=== PATIENT | female | born 1960 | race Caucasian/White ===

== ENCOUNTER → 2016-06-18 | Outpatient (CLI) | payer OTHER ==
[~2016-06-18] MED LIST: ALBU1AER9 INH; CINN1CAP2 PO; MULT-506 PO; NYSTCRE11 TD
--- NOTE | 2016-06-19 05:45 | SPLIT NIGHT TECHNICIAN REPORT ---
[facility] Split Night Polysomnogram - Film And Video Graphics Designer Report Study date: 06/18/2016 Referring Physician: DONNA MARRERO DO, DO Name: ROSEY, TRACY Film And Video Graphics Designer: NICOLE Cai. Date of : 1960 Height: 55 years, Height 5' 6" Sex: Female Weight: 208 lbs Age: 55 Neck Circum: 14.5 in BMI: Medications: 33.57 STEPHEN D, AZITHROMYCIN 250 MG, BOSWELLIA, CINNAMON 500 MG, COQ-10, FISH OIL, GUAIFENESIN-CODEINE 100-10 MG/5 ML, PREDNISONE 50 MG, PROBIOTIC, SYNTHROID 50 MCG, VENTOLIN AERS, VENTOLIN HFA Patient History 55 yr-old female here for a baseline/split study. She has had previous sleep testing. She was found to be positive for mild JARRETT about 10 years ago. She could not tolerate CPAP at that time. She is back to assess her JARRETT and try CPAP or BiPAP again. Her [place] scale is 17. The test was started on room air. ETCO2 testing was not utilized during this study. Room 3 Parameters Monitored NPSG: E1-M2, E2-M1, Fp1-M2, Fp2-M1, F3-M2, F4-M2, F4-M1, C3-M2, C4-M2, C4-M1, O1-M2, O2-M2, O2-M1, T3-M2, T4-M1, P3-M2, P4-M1, CHIN1, CHIN2, HR, EKG, Legs, PFLOW, SNOR, FLOW, CFLOW, Tidal Volume, THOR, ABDO, SpO2, PLTH, CPRESS, ETCO2 Wave, ETCO2, pH SLEEP SUMMARY DATA DIAGNOSTIC TREATMENT Lights Out: 9:24:27 PM 12:17:57 AM Lights On: 11:55:27 PM 5:19:57 AM Total Recording Time (TRT): 151.0 min. 302.0 min. Total Sleep Time (TST): 137.5 min. 259.0 min. NREM Time: 106.0 min. 192.5 min. REM Time: 31.5 min. 66.5 min. Sleep Period Time (SPT): 139.0 min. 287.0 min. Sleep Efficiency (SE): 91 % 86 % Sleep Latency: 12.0 min. 6.5 min. Arousal Index: 15.7 11.8 PAP Treatment Levels: 4, 6, 7, 9, 12/8 * Optimal Pressure(s) SLEEP STAGING DATA DIAGNOSTIC TREATMENT Duration (min) TST % Duration (min) TST % Stage Wake: 13.5 min. -- 43.0 min. -- WASO: 1.5 min. -- 28.0 min. -- NREM: 106.0 min. 77 % 192.5 min. 74 % Stage N1: 6.5 min. 5 % 26.0 min. 10 % Stage N2: 90.5 min. 66 % 132.5 min. 51 % Stage N3: 9.0 min. 7 % 34.0 min. 13 % REM: 31.5 min. 23 % 66.5 min. 26 % POSITIONAL DATA Event Count Index Event Count Index Supine: 132 55.4 73 28.9 Supine NREM: 103 56.0 60 34.6 Supine REM: 29 53 13 17 Non-Supine: N/A N/A 4 2.1 Non-Supine NREM: N/A N/A 4 2.6 Non-Supine REM: N/A N/A 0 0.0 AROUSAL SUMMARY DATA: Event Count Index Event Count Index Apnea Arousals: 18 32.7 13 11.6 Hypopnea Arousals: 5 2.2 1 0.2 Snore Arousals: 5 2.2 5 1.2 PLM Arousals: 0 0.0 3 0.7 Non-Specific Arousals: 4 1.7 21 4.9 Total Arousals: 36 15.7 51 11.8 MYOCLONUS (PLM) Event Count Index Event Count Index PLM: 0 0.0 11 2.5 PLM AROUSAL: 0 0.0 3 0.7 PLM W/O AROUSAL 0 0.0 8 1.9 PLM W/RESP EVENT 0 0.0 1 0.0 MYOCLONUS (PLM) Event Count Index Event Count Index LM: 1 14.8 15 3.5 LM AROUSAL: 1 0.4 6 1.4 LM W/O AROUSAL LM W/RESP EVENT LM NON SPECIFIC 21 9.2 12 2.8 HEART RATE DATA DIAGNOSTIC TREATMENT Sleep (bpm): 60 55 REM (bpm): 93 96 NREM (bpm): 94 95 Tachycardia Count: 0 0 Tachycardia Duration: 0.00 0 Bradycardia Count: 0 0 Bradycardia Duration: 0.00 0 DIAGNOSTIC PORTION TREATMENT PORTION RESPIRATORY DATA Event Count Index Event Count Index AHI: -- 55.4 -- 17.4 RDI: -- 57.6 -- 18 Obstructive Apnea: 74 32.3 5 1.2 Central Apnea: 0 0.0 39 9.0 Mixed Apnea: 1 0.4 6 1.4 Hypopnea: 52 22.7 25 5.8 RERA: 5 2.2 2 0.5 Total Apneas: 75 32.7 50 11.6 RESPIRATORY DATA REM NREM SLEEP REM NREM SLEEP Supine Position: Obstructive Apneas: 4 70 74 1 4 5 Central Apneas: 0 0 0 0 36 36 Mixed Apneas: 0 1 1 0 5 5 Hypopneas: 24 28 52 12 13 25 RERA 1 4 5 0 2 2 Total Supine Events: 29 103 132 13 60 73 Supine AHI: 53 56.0 55.4 17 34.6 28.9 Supine RDI: 55.2 58.3 57.6 16.8 35.7 29.8 REM NREM SLEEP REM NREM SLEEP Non-Supine Position: Obstructive Apneas: N/A N/A N/A 0 0 0 Central Apneas: N/A N/A N/A 0 3 3 Mixed Apneas: N/A N/A N/A 0 1 1 Hypopneas: N/A N/A N/A 0 0 0 RERA N/A N/A N/A 0 0 0 Total Supine Events: N/A N/A N/A 0 4 4 Supine AHI: N/A N/A N/A 0.0 2.6 2.1 Supine RDI: N/A N/A N/A 0.0 2.6 2.1 OXYGEN DESTAURATION DATA: Event Count Index Event Count Index REM Desaturations: 30 57.1 12 10.8 NREM Desaturations: 68 38.5 41 12.8 SNORE DATA DIAGNOSTIC TREATMENT Snore Time: 17.1 12:24:27 AM Snore TST%: 6 3 Snore Arousal Count: 5 5 Snore Arousal Index: 2.2 1.2 Desaturation Event Summary: Minimum %SpO2 Event Count Mean/Min/Max Duration(sec.) Desaturation Index % Time In Bed > 90 157 24.6 / 5.3 / 60.0 21.9 96.2 86 - 90 3 9.8 / 5.3 / 12.8 11.5 3.5 81 - 85 0 N/A 0.0 0.3 76 - 80 0 N/A 0.0 0.0 71 - 75 0 N/A 0.0 0.0 66 - 70 0 N/A 0.0 0.0 61 - 65 0 N/A 0.0 0.0 56 - 60 0 N/A 0.0 0.0 51 - 55 0 N/A 0.0 0.0 < 50 0 N/A 0.0 0.0 OXYGEN SATURATION DATA DIAGNOSTIC TREATMENT SpO2 Mean Sleep: 94 % 95 % SpO2 Mean REM: 93 % 96 % SpO2 Mean NREM: 94 % 95 % SpO2 Minimum Sleep: 83 % 84 % SpO2 Minimum REM: 83 % 84 % SpO2 Minimum NREM: 83 % 87 % Time Below 90% (TST): 5.8 2.7 Time Below 88% (TST): 2.4 0.8 Total REM NREM Awake <50% 0.0 min. 0.0 min. 0.0 min. 0.0 min. 51 - 60% 0.0 min. 0.0 min. 0.0 min. 0.0 min. 61 - 70% 0.0 min. 0.0 min. 0.0 min. 0.0 min. 71 - 80% 0.0 min. 0.0 min. 0.0 min. 0.0 min. 81 - 90% 16.8 min. 7.0 min. 9.1 min. 0.7 min. 91 - 100% 430.1 min. 91.0 min. 289.1 min. 50.0 min. Average 95 95 95 96 Minimum SpO2 82 83 83 82 Desaturation Event Index 20.8 25.7 21.9 8.5 # Desat. Events below 89% 30 16 13 1 Time(%) with Saturation below 89% 1.1 0.7 0.4 0.0 Time(min.) with Saturation below 89% 5.0 3.2 1.6 0.2 Recording Film And Video Graphics Designer Comments: Ms. Fowler slept in the right, and supine positions. No cardiac arrhythmias or PLMs noted. No bruxism noted. Snoring was noted and scored as a 3 on a scale of 1 through 5. (0=no snoring, 5=snoring loud enough to be heard through a closed door or down the [address] way). At 12:15 am, she met specific Split-Night criteria during the diagnostic portion of this study. CPAP was initiated at +4 CMH2O and up-titrated to a level of +9 CMH2O, Cflex 3. She slept for 2 periods in the supine position after CPAP was introduced. She had numerous central apneas while supine until she rolled over. The central apneas stopped while she slept on her side. She then rolled to the supine position again and seemed to sleep well. She then shifted the position of her head at 5 am, and the central apneas started back up. She was then switched to BiPAP to try to help the central apneas. A rate of 13 BPM was also added late for the central apneas. Right after the rate was added, she woke up and was ready to end the study. Central apneas continued to the end of the study, therefore pressure is inconclusive. An AirFit full face mask size small was used during titration. She awoke up to use the restroom one time during the night. Ms. Fowler stated that she is unsure of how she slept. The final report will be interpreted and signed by a sleep physician. The completed physician report will then be placed in the patient medical record. Therapy Event: Therapy (cm H20) 0 4 6 7 9 12/8 Total Time at Pressure (min.) 151.0 61.4 115.1 20.5 89.3 15.6 TST at Pressure (min.) 137.5 33.9 112.6 20.5 86.8 5.1 # Periods 1 1 1 1 1 1 Sleep Onset (min.) 12.0 6.5 0.0 0.0 0.0 0.0 REM Onset (min.) 117.5 N/A 38.1 7.0 0.0 N/A Sleep Efficiency % 91 55 97 100 97 32 Wakefulness (%) 8.9 44.8 2.2 0.0 2.8 67.1 Wakefulness (min.) 13.5 27.5 2.5 0.0 2.5 10.5 NREM 1 (%) 4.3 22.0 1.3 0.0 8.4 22.4 NREM 1 (min.) 6.5 13.5 1.5 0.0 7.5 3.5 NREM 2 (%) 59.9 33.2 49.6 34.0 51.9 10.5 NREM 2 (min.) 90.5 20.4 57.1 7.0 46.4 1.6 NREM 3 (%) 6.0 0.0 29.5 0.0 0.0 0.0 NREM 3 (min.) 9.0 0.0 34.0 0.0 0.0 0.0 REM (%) 20.9 0.0 17.4 66.0 36.9 0.0 REM (min.) 31.5 0.0 20.0 13.5 33.0 0.0 # Arousals 36 30 5 0 12 4 Arousal Index 15.7 53.1 2.7 0.0 8.3 46.6 # Snore 537 19 170 78 26 1 Snore Index 234.3 33.6 90.6 228.4 18.0 11.7 AHI 55.4 60.2 4.8 46.8 7.6 58.3 AHI Supine 55.4 84.5 37.7 46.8 7.6 58.3 AHI Non-Supine N/A 15.1 0.6 N/A N/A N/A NREM AHI 56.0 60.2 5.8 51.7 8.9 58.3 REM AHI 53.3 N/A 0.0 44.4 5.5 N/A RDI 57.6 60.2 5.3 46.8 8.3 58.3 # Obstructive 74 2 2 1 0 0 # Central Ap 0 26 0 0 8 5 # Mixed 1 5 1 0 0 0 # Hypopneas 52 1 6 15 3 0 RERAS 5 0 1 0 1 0 Total Respiratory Events 132 34 10 16 12 5 Time Below SpO2 89.00% (min.) 3.6 0.4 0.0 0.8 0.0 0.0 Mean NREM SpO2 (%) 94 93 95 95 96 98 Mean REM SpO2 (%) 93 N/A 95 95 96 N/A Mean Sleep SpO2 (%) 94 93 95 95 96 98 Min NREM SpO2 (%) 83 87 91 90 94 97 Min REM SpO2 (%) 83 N/A 93 84 89 N/A Position Supine (min.) 137.5 22.0 12.7 20.5 86.8 5.1 Position Non-supine (min.) 0.0 11.9 99.9 0.0 0.0 0.0 LM Index Sleep 14.8 33.6 2.1 0.0 2.1 0.0 LM Index NREM 17.0 33.6 2.6 0.0 3.3 0.0 LM Index REM 7.6 N/A 0.0 0.0 0.0 N/A Mean Heart Rate (bpm) 60 56 55 55 54 47 Min Heart Rate (bpm) 49 49 47 47 43 42 CPAP REPORT Therapy Detail Time / Page # Comment CPAP 4 cm H2O Full Face Mask Flex Pressure Relief Humidifier on 12:15:51 AM / pg. 472 CPAP 4 cm H2O Full Face Mask Flex Pressure Relief Humidifier on 12:16:28 AM / pg. 474 SHE HAS BEEN ASLEEP FOR OVER 2 HOURS AND HER AHI IS ABOVE 40. CPAP 6 cm H2O Full Face Mask Flex Pressure Relief Humidifier on 1:19:21 AM / pg. 599 INCREASED FOR SOME HYPOPNEAS AND APNEAS. WILL DEAL WITH CENTRAL APNEAS WHEN SHE ROLLS SUPINE AGAIN CPAP 7 cm H2O Full Face Mask Flex Pressure Relief Humidifier on 3:14:29 AM / pg. 830 INCREASED FOR HYPOPNEAS AND APNEAS CPAP 9 cm H2O Full Face Mask Flex Pressure Relief Humidifier on 3:34:59 AM / pg. 871 INCREASED FOR HYPOPNEAS BiLevel 12/8 cm H2O Full Face Mask Flex Pressure Relief Humidifier on 5:04:18 AM / pg. 1049 SHE ROLLED TO THE SUPINE POSITION AND STARTED HAVING CENTRAL APNEAS AGAIN. CHANGED TO BIPAP LATE TO HELP THE CENTRAL APNEAS BiLevel 12/8 cm H2O, Rate 13 bpm Full Face Mask Flex Pressure Relief Humidifier on 5:10:16 AM / pg. 1061 ADDED A RATE LATE DUE TO CENTRAL APNEAS
--- NOTE | 2016-06-22 13:16 | POLYSOMNOGRAPH REPORT ---
CLINICAL DATA: The patient is a 55-year-old female who has a BMI of 33.57. She had a history of sleep apnea diagnosed about 15 years ago. She thought that it was mild. She was on nasal CPAP, but did not do well with it. She also was on oxygen with a CPAP. Subsequently, she tried an oral appliance and did fairly well. Within the past year, the oral appliance was changed to another one referred to TAP 3. She did not do well with this and she has not worn it for several months. She has snoring, disturbed nocturnal sleep, and excessive daytime somnolence. Her [place] score is severely elevated at 18. She underwent a split night study. SLEEP ARCHITECTURE: During the diagnostic portion of the study, the sleep period time was 139.0 minutes and the total sleep time was 137.5 minutes. The sleep efficiency was 91%. The sleep latency was 12 minutes. The arousal index was 15.7. Sleep consisted of stage N1 5%, stage N2 66%, stage N3 7%, and stage REM 23%. During the therapeutic portion of the study when she was treated with nasal CPAP, the sleep period time was 287 minutes with a total sleep time of 259 minutes. The sleep efficiency was 86%. Sleep consisted of stage N1 10%, stage N2 51%, stage N3 13%, and stage REM 26%. AROUSAL DATA: During the diagnostic portion of the study, the patient had a total of 36 arousals for an index of 15.7. During the therapeutic portion of the study, she had a total of 51 arousals for an index of 11.8. PERIODIC LIMB MOVEMENTS DATA: During the diagnostic portion of the study, there were no periodic limb movements. During the therapeutic portion of the study, there were 11 periodic limb movements for an index of 2.5. The PLM arousal index was only 0.7. EKG: The cardiac rates ranged from 55-96 beats per minute. No arrhythmias were noted. RESPIRATORY DATA: During the diagnostic portion of the study, the patient had a total of 74 obstructive apneas, 1 mixed apnea and 52 hypopneas. The apnea hypopnea index was severely elevated at 55.4. During the therapeutic portion of the study, the patient had a total of 5 obstructive apneas, 39 central apneas, 6 mixed apneas and 25 hypopneas. The apnea hypopnea index was 17.4. OXIMETRY DATA: During the diagnostic portion of the study, the lowest saturation was 83%. There was a total of 2.4 minutes with saturations less than 88%. During the therapeutic portion of the study, the lowest saturation was 84%, but there was only 0.8 minutes with saturations less than 88%. POT LINER'S COMMENTS: The patient slept in the right and supine positions. No arrhythmias were noted. No bruxism noted. Snoring was scored as a 3 on a scale of 1 through 5. At 12:15 a.m., the patient met specific split night criteria during the diagnostic portion of the study. CPAP was initiated at 4 cm and titrated up to level of 9 cm. She had numerous central apneas as well when supine until she rolled over. The central apneas seemed to cease when she was on her side. Subsequently, near 5:00 a.m., the patient and changed her positions again. The central apneas started. She was switched to BiPAP to try to help the central apneas. However, she awakened shortly thereafter. IMPRESSION: 1. Obstructive sleep apnea -- severe. 2. Complex sleep apnea -- precipitated by treatment with nasal CPAP therapy. COMMENTS: The patient has very severe sleep apnea as noted with a diagnostic apnea-hypopnea index of 55.4. There were transient and relatively minimal oxygen desaturations. She was treated with nasal CPAP. She ultimately develops some central sleep apnea when she was supine. This resolved for the next several hours when she turned off of her back. It recurred again shortly before the end of the study. She has complex sleep apnea in response to treatment. RECOMMENDATIONS: 1. It is advised that she be given a trial of auto CPAP with a minimum pressure of 6 and a maximum of 18 cm. Her mask should be an AirFit Full face mask size small. 2. Fairly close followup should be done in 3-4 weeks after the initiation of auto CPAP with evaluation of compliance data. 3. A weight reduction program is advised in light of her elevation of body mass index of 33.57. 4. It is suggested that she avoid sleeping in the supine position as she clearly had increased events when she was supine. 5. The patient should be advised of the appropriate principles of sleep hygiene including allowing 7.5 hours of sleep per night. We also would suggest that dogs not sleep on her bed. [facility]
== END | disposition home or self-care (01) ==
LOC: C.NEUR 20:00
PROVIDERS: ATTEND Internal Medicine Pulmonary Disease
DX: G47.30 Sleep apnea, unspecified (principal)

== ENCOUNTER → 2016-06-24 | Outpatient (CLI) | payer OTHER ==
[~2016-06-24] VITALS: Ht 167.6 cm; Wt 95.8 kg
[2016-06-24 09:53] VITALS: BP 123/82; PULSE 78; Ht 167.6 cm; Wt 95.8 kg
== END | disposition home or self-care (01) ==
LOC: C.NEUR 09:37
PROVIDERS: ATTEND Internal Medicine Pulmonary Disease
DX: G47.30 Sleep apnea, unspecified (principal); J39.2 Other diseases of pharynx

== ENCOUNTER → 2016-07-22 | Outpatient (CLI) | payer OTHER ==
[~2016-07-22] VITALS: Ht 167.6 cm; Wt 97.2 kg
[2016-07-22 09:18] VITALS: BP 105/71; PULSE 72; Ht 167.6 cm; Wt 97.2 kg
== END | disposition home or self-care (01) ==
LOC: C.NEUR 09:07
PROVIDERS: ATTEND Internal Medicine Pulmonary Disease
DX: G47.30 Sleep apnea, unspecified (principal)

== ENCOUNTER → 2016-09-02 | Outpatient (CLI) | payer OTHER ==
[~2016-09-02] VITALS: Ht 167.6 cm; Wt 98.4 kg
[2016-09-02 08:30] VITALS: BP 121/75; PULSE 73; Ht 167.6 cm; Wt 98.4 kg
== END | disposition home or self-care (01) ==
LOC: C.NEUR 08:18
PROVIDERS: ATTEND Internal Medicine Pulmonary Disease
DX: G47.30 Sleep apnea, unspecified (principal)

== ENCOUNTER 2017-03-20 22:09 | Emergency (ER) | payer OTHER ==
[~2017-03-20] VITALS: Ht 167.6 cm; Wt 99.2 kg
[2017-03-20 22:12] VITALS: TEMP 36.5; Ht 167.6 cm; Wt 99.2 kg
[2017-03-20] MEDS ORDERED: ASPIRIN 324 MG CHEW PO STA (22:35)
[2017-03-20] MEDS ORDERED: VNTHFA/IN INH (22:41)
[2017-03-20] MEDS ORDERED: SYN50 PO (22:41)
[2017-03-20] MEDS ORDERED: FEXO1TAB49 PO (22:41)
[2017-03-20] MEDS ORDERED: [UNRECOGNIZED DRUG - OTHER] PO (22:41)
[2017-03-20] MEDS ORDERED: OMEG100046 PO (22:41)
[2017-03-20] MEDS ORDERED: [UNRECOGNIZED DRUG - OTHER] PO (22:41)
[2017-03-20 22:44] LABS: BASO % 0.4 %; BASO ABS # 0.03 K/uL (0-0.2); COMPLETE YES; EOS % 0.8 %; HEMATOCRIT 42.1 % (37-47); IG% 0.3 %; LYMPH % 14.8 %; LYMPH ABS # 1.15 K/uL (1.2-3.4); MEAN CELL VOLUME 90.5 fL (80-100); MEAN CORPUSCULAR HGB CONC 35.4 g/dl (32-36); MEAN PLATELET VOLUME 9.4 fL (7.4-10.4); MONO % 3.7 %; PLATELET COUNT 228 K/uL (130-400); RED BLOOD COUNT 4.65 M/uL (4.2-5.4); WHITE BLOOD COUNT 7.76 K/uL (4.8-10.8)
[2017-03-20] MEDS ORDERED: NITROGLYCERIN OINT 2% 1GM PACKET EXT ONE (22:45)
[2017-03-20 22:49] LABS: URINE APPEARANCE CLEAR (CLEAR); URINE BILIRUBIN NEG (NEG); URINE COLOR YELLOW; URINE NITRITE NEG (NEG); UROBILINOGEN NEG (NEG); ZZUR CULT IF INDIC CLEAN CATCH NO
[2017-03-20 22:51] LABS: PARTIAL THROMBOPLASTIN RATIO 0.9; PROTHROMBIN TIME (PATIENT) 10.5 SECONDS (9.0-12.0)
--- NOTE | 2017-03-20 22:55 | DIAGNOSTIC IMAGING REPORT ---
CHEST ONE VIEW PORTABLE HISTORY: 56 years-old Female Left side chest pain acute left-sided chest pain. COMPARISON: Chest radiograph 04/06/2016 TECHNIQUE: Portable upright AP view of the chest FINDINGS: Cardiomediastinal and hilar silhouettes are within normal limits. There is atherosclerosis of the aorta. Minimal subsegmental bibasilar atelectasis without pneumothorax, pleural effusion or focal airspace consolidation. No overt pulmonary edema. Bones are grossly intact. IMPRESSION: No acute cardiopulmonary process. The above report was generated using voice recognition software. It may contain grammatical, syntax or spelling errors. Electronically signed by: Jairo Pollack M.D. 03/20/2017 10:53 PM Dictated Date/Time: 03/20/2017 10:52 PM
[2017-03-20 22:56] LABS: MANUAL MICROSCOPIC REQUIRED? NO; REVIEW REQ? NO
[2017-03-20 22:59] LABS: BUN/CREATININE RATIO 26.6 (10-20); CALCIUM 8.8 mg/dl (8.5-10.1); CREATININE 0.71 mg/dl (0.60-1.20)
[2017-03-20 23:09] LABS: POINT OF CARE TROPONIN I < 0.030 ng/ml (0-0.045)
[2017-03-20 23:09] LABS: ALB/GLOB RATIO 1.2 (0.9-2); THYROID STIMULATING HORMONE 1.74 uIu/ml (0.300-4.500)
[2017-03-20] MEDS ORDERED: OPTIRAY 320 IV PRN (23:30)
[2017-03-21 01:38] VITALS: BP 100/61; PULSE 68; O2SAT 97
--- NOTE | 2017-03-21 06:16 | DIAGNOSTIC IMAGING REPORT ---
(CHEST FOR PE) ANGIO WITH CLINICAL HISTORY: 56 years-old Female presenting with chest pain, history of DVT/PE, elevated d-dimer, clinical concern for PE. TECHNIQUE: Multidetector CT angiography of the chest was performed after administration of intravenous contrast. 3-D volumetric and/or maximum intensity projection (MIP) images were subsequently reconstructed for review. IV contrast: 92 mL of Optiray 320. A dose lowering technique was used consistent with the principles of ALARA (as low as reasonably achievable). COMPARISON: Chest x-ray performed earlier the same day. CT DOSE (mGy.cm): The estimated cumulative dose is 468.01 mGy.cm. FINDINGS: Logging Equipment Operator topogram: Unremarkable. Pulmonary vasculature: The study is adequate for assessment of the pulmonary vascular tree. No filling defect within the pulmonary arteries to suggest embolus. Main pulmonary artery is not enlarged. No flattening of the interventricular septum. No intracardiac intracardiac filling defect. No reflux of contrast into the hepatic veins. Remaining chest: On soft tissue windows, normal thyroid and thoracic inlet. No axillary, supraclavicular, hilar, or mediastinal lymphadenopathy. Normal aorta. Normal heart size. No pericardial or pleural effusion. The esophagus contains gas and does not demonstrate significant wall thickening or surrounding fat stranding. Small hiatal hernia may be present. Upper abdomen normal. On lung windows, minimal dependent changes likely atelectasis. Mosaic attenuation could suggest small airways disease. Airways patent. On bone windows, mild degenerative changes of the spine. IMPRESSION: 1. No evidence of pulmonary embolus. 2. Mosaic attenuation could suggest small airways disease. No focal infiltrate. Electronically signed by: Gabriel Fay M.D. 03/21/2017 6:15 AM Dictated Date/Time: 03/21/2017 6:07 AM
--- NOTE | 2017-03-22 00:25 | EMERGENCY ROOM VISIT NOTE ---
History First contact with patient: 22:21 Chief Complaint: CARDIAC ASSESSMENT Stated Complaint: HEAVY FEELING IN CHEST, PAINS IN BACK, LT SIDE Nursing Triage Summary: Pt c/o increased left sided chest pain, increases with deep breaths and exertion, weakness, and general malaise starting this morning. History of Present Illness The patient is a 56 year old female who presents to the Emergency Room with complaints of left sided chest pain that has been ongoing for the past 9-10 hours. The patient states that she was visiting her father who is in an assisted assisted this morning. The patient was not feeling well, and had some vague weakness and lightheadedness. She went home after she began developing some left flank pain. She states the pain has migrated and is now primarily in the left upper chest and across the front anteriorly of the chest. The patient has increased stressors in her personal life as there was a recent in the family and she was at the celebration of life ceremony yesterday. The patient has not had fever or chills. She is able to move around without significant difficulty. The pain has been steady and constant. 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 She does not have a personal history of cardiac disease. She has not taken anything [id number] for her symptoms. Review of Systems More than 10 systems were reviewed and otherwise negative with the exception of history of present illness. Past Medical/Surgical History Medical Problems: (1) Bronchitis (2) Pneumonia Surgical Problems: (1) H/O ovarian cystectomy (2) H/O: hysterectomy (3) Hx of cholecystectomy Family History FH: HTN (hypertension) FH: cancer FH: kidney cancer FH: lung disease Heart disease Social History Smoking Status: Never Smoker Marital Status: Housing Status: lives with significant other Occupation Status: employed Current/Historical Medications Scheduled Cinnamon (Cinnamon), 500 MG PO DAILY Fexofenadine Hcl (Twila Allergy), 180 MG PO DAILY Levothyroxine Sodium (Synthroid), 50 MCG PO DAILY Multivitamin (Multivitamin), 1 TAB PO DAILY Martelle-3 Fatty Acids (Martelle 3), 1 CAP PO DAILY [Cardio FX], 1 CAP PO DAILY [Immune FX], 1 CAP PO DAILY Scheduled PRN Albuterol Hfa (Ventolin Hfa), 2 PUFFS INH Q6H PRN for SOB/Wheezing Physical Exam Vital Signs Date Time Temp Pulse Resp B/P (MAP) Pulse Ox O2 Delivery O2 Flow Rate FiO2 03/21/17 01:38 68 18 100/61 97 03/21/17 01:31 68 18 100/61 97 Room Air 03/21/17 01:01 111/67 03/21/17 00:01 126/76 03/20/17 23:14 63 16 98 Room Air 03/20/17 23:09 65 15 99 Room Air 03/20/17 23:01 125/85 03/20/17 22:42 140/86 03/20/17 22:39 71 03/20/17 22:34 Room Air 03/20/17 22:34 Room Air 03/20/17 22:12 36.5 71 18 142/93 96 Room Air Physical Exam VITALS: Vitals are noted on the nurse's note and reviewed by myself. Vital signs stable. GENERAL: Well-developed, well-nourished, white female, who is in no acute distress and resting comfortably. Patient is cooperative with the examination. HEAD: Normocephalic atraumatic. EARS: External ear normal. External auditory canals clear, tympanic membranes pearly mott without erythema or effusion bilaterally. EYES: Pupils equal round and reactive to light and accommodation. Conjunctivae without injection, sclerae without icterus. Extraocular movements intact. NOSE: Patent, turbinates without inflammation or discharge. MOUTH: Mucous membranes moist. Tonsils are not enlarged. Pharynx without erythema, blood, or exudate. Uvula midline. Airway patent. NECK: Supple without nuchal rigidity. No lymphadenopathy. No thyromegaly. Cervical spine is nontender. HEART: Regular rate and rhythm without murmurs gallops or rubs. LUNGS: Clear to auscultation bilaterally without wheezes, rales or rhonchi. No retractions or accessory muscle use. CHEST WALL: Anterior and left-sided chest wall without rash, lesion, or palpable tenderness. No crepitus or other lesions. ABDOMEN: Positive normal bowel sounds x 4. Soft, nontender, without masses or organomegaly. No guarding or rebound tenderness. MUSCULOSKELETAL: No muscle atrophy, erythema, or edema noted. Full range of motion without joint tenderness in all extremities. Negative Homans sign bilateral. Medical Decision & Procedures ER Provider Diagnostic Interpretation: CHEST ONE VIEW PORTABLE HISTORY: 56 years-old Female Left side chest pain acute left-sided chest pain. COMPARISON: Chest radiograph 04/06/2016 TECHNIQUE: Portable upright AP view of the chest FINDINGS: Cardiomediastinal and hilar silhouettes are within normal limits. There is atherosclerosis of the aorta. Minimal subsegmental bibasilar atelectasis without pneumothorax, pleural effusion or focal airspace consolidation. No overt pulmonary edema. Bones are grossly intact. IMPRESSION: No acute cardiopulmonary process. (CHEST FOR PE) ANGIO WITH CLINICAL HISTORY: 56 years-old Female presenting with chest pain, history of DVT/PE, elevated d-dimer, clinical concern for PE. TECHNIQUE: Multidetector CT angiography of the chest was performed after administration of intravenous contrast. 3-D volumetric and/or maximum intensity projection (MIP) images were subsequently reconstructed for review. IV contrast: 92 mL of Optiray 320. A dose lowering technique was used consistent with the principles of ALARA (as low as reasonably achievable). COMPARISON: Chest x-ray performed earlier the same day. CT DOSE (mGy.cm): The estimated cumulative dose is 468.01 mGy.cm. FINDINGS: Parts Department Manager topogram: Unremarkable. Pulmonary vasculature: The study is adequate for assessment of the pulmonary vascular tree. No filling defect within the pulmonary arteries to suggest embolus. Main pulmonary artery is not enlarged. No flattening of the interventricular septum. No intracardiac intracardiac filling defect. No reflux of contrast into the hepatic veins. Remaining chest: On soft tissue windows, normal thyroid and thoracic inlet. No axillary, supraclavicular, hilar, or mediastinal lymphadenopathy. Normal aorta. Normal heart size. No pericardial or pleural effusion. The esophagus contains gas and does not demonstrate significant wall thickening or surrounding fat stranding. Small hiatal hernia may be present. Upper abdomen normal. On lung windows, minimal dependent changes likely atelectasis. Mosaic attenuation could suggest small airways disease. Airways patent. On bone windows, mild degenerative changes of the spine. IMPRESSION: 1. No evidence of pulmonary embolus. 2. Mosaic attenuation could suggest small airways disease. No focal infiltrate. Laboratory Results 03/20/17 22:30 Red Blood Count 4.65, Mean Corpuscular Volume 90.5, Mean Corpuscular Hemoglobin 32.0, Mean Corpuscular Hemoglobin Concent 35.4, Mean Platelet Volume 9.4, Neutrophils (%) (Auto) 80.0, Lymphocytes (%) (Auto) 14.8, Monocytes (%) (Auto) 3.7, Eosinophils (%) (Auto) 0.8, Basophils (%) (Auto) 0.4, Neutrophils # (Auto) 6.21, Lymphocytes # (Auto) 1.15, Monocytes # (Auto) 0.29, Eosinophils # (Auto) 0.06, Basophils # (Auto) 0.03 03/20/17 22:30 Test 03/20/17 22:30 03/20/17 22:51 03/21/17 01:00 White Blood Count 7.76 K/uL (4.8-10.8) Red Blood Count 4.65 M/uL (4.2-5.4) Hemoglobin 14.9 g/dL (12.0-16.0) Hematocrit 42.1 % (37-47) Mean Corpuscular Volume 90.5 fL (80-100) Mean Corpuscular Hemoglobin 32.0 pg (25-34) Mean Corpuscular Hemoglobin Concent 35.4 g/dl (32-36) Platelet Count 228 K/uL (130-400) Mean Platelet Volume 9.4 fL (7.4-10.4) Neutrophils (%) (Auto) 80.0 % Lymphocytes (%) (Auto) 14.8 % Monocytes (%) (Auto) 3.7 % Eosinophils (%) (Auto) 0.8 % Basophils (%) (Auto) 0.4 % Neutrophils # (Auto) 6.21 K/uL (1.4-6.5) Lymphocytes # (Auto) 1.15 K/uL (1.2-3.4) Monocytes # (Auto) 0.29 K/uL (0.11-0.59) Eosinophils # (Auto) 0.06 K/uL (0-0.5) Basophils # (Auto) 0.03 K/uL (0-0.2) RDW Standard Deviation 40.2 fL (36.4-46.3) RDW Coefficient of Variation 12.1 % (11.5-14.5) Immature Granulocyte % (Auto) 0.3 % Immature Granulocyte # (Auto) 0.02 K/uL (0.00-0.02) Prothrombin Time 10.5 SECONDS (9.0-12.0) Prothromb Time International Ratio 1.0 (0.9-1.1) Activated Partial Thromboplast Time 23.5 SECONDS (21.0-31.0) Partial Thromboplastin Ratio 0.9 Urine Color YELLOW Urine Appearance CLEAR (CLEAR) Urine pH 8.0 (4.5-7.5) Urine Specific [place] 1.010 (1.000-1.030) Urine Protein NEG (NEG) Urine Glucose (UA) NEG (NEG) Urine Ketones NEG (NEG) Urine Occult Blood NEG (NEG) Urine Nitrite NEG (NEG) Urine Bilirubin NEG (NEG) Urine Urobilinogen NEG (NEG) Urine Leukocyte Esterase NEG (NEG) Anion Gap 10.0 mmol/L (3-11) Est Creatinine Clear Calc Drug Dose 107.6 ml/min Estimated GFR () 111.9 Estimated GFR (Non- 96.6 BUN/Creatinine Ratio 26.6 (10-20) Calcium Level 8.8 mg/dl (8.5-10.1) Total Bilirubin 0.4 mg/dl (0.2-1) Aspartate Amino Transf (AST/SGOT) 26 U/L (15-37) Alanine Aminotransferase (ALT/SGPT) 47 U/L (12-78) Alkaline Phosphatase 63 U/L (45-117) Total Protein 7.1 gm/dl (6.4-8.2) Albumin 3.8 gm/dl (3.4-5.0) Globulin 3.3 gm/dl (2.5-4.0) Albumin/Globulin Ratio 1.2 (0.9-2) Lipase 470 U/L (73-393) Thyroid Stimulating Hormone (TSH) 1.740 uIu/ml (0.300-4.500) Bedside D-Dimer > 450 ng/mlFEU (0-450) Bedside Troponin I < 0.030 ng/ml (0-0.045) Medications Administered Medications (Trade) Dose Ordered Sig/Fabiola Route Start Time Stop Time Status Last Admin Dose Admin Aspirin (Aspirin Chew) 324 mg NOW STAT PO 03/20/17 22:35 03/20/17 22:37 DC 03/20/17 22:43 324 MG Nitroglycerin (Nitroglycerin 2% Oint) 1 inch NOW ONCE EXT 03/20/17 22:45 03/20/17 22:46 DC 03/20/17 22:43 1 INCH ECG Change: Poor data quality, interpretation may be adversely affected Normal sinus rhythm @72 bpm Normal ECG No previous ECGs available Confirmed by AGAPITO MAIER MD ([id number]) on 03/21/2017 1:03:57 PM ED Course Physical exam and history were performed. Nursing notes, EMR, and Medication List were personally reviewed. Patient appears to have vague and persistent left-sided chest discomfort for the past 9 or 10 hours. The patient does not appear toxic on examination. EKG was performed and was normal sinus rhythm without acute ST elevation as above. IV access was established and labs were obtained. The patient was hydrated with normal saline and given aspirin and 1 inch Nitropaste. She was placed on the cardiac cath technologist. The patient's blood work is as above and was reviewed. She does not have a significantly elevated white blood cell count, gross anemia, bandemia, or significant electrolyte imbalance. Lipase and transaminases are nondiagnostic. Troponin 2 were negative. D-dimer 1 was positive. Her chest x-ray does not show acute process. Because of the elevated d-dimer and history of PE I did elect to perform angiogram. The CT angiogram was also without significant acute findings. On reevaluation the patient did not have significant improvement of her symptoms after nitro paste and aspirin. I discussed the case with my attending physician, and overall feel the patient is stable for discharge home. I suspect that her symptoms may be related to stress/anxiety over family events for the past few days. The patient agrees this is probably contributing to her symptoms. The patient was asked to follow with her primary care physician on Wednesday after the weekend for a recheck. She was invited back to the ER with any new, worsening, or concerning symptoms. She voiced understanding and rated her discomfort a 1/10 at the time of departure. The chart was completed utilizing [employer] Speech Voice Recognition Software. Grammatical errors, random word insertions, pronoun errors, and incomplete sentences are an occasional consequence of this system due to software limitations, ambient noise, and hardware issues. Any formal questions or concerns about the content, text, or information contained within the body of this dictation should be directly addressed to the provider for clarification. . Medical Decision Differential diagnosis includes, but is not limited to: Myocardial infarction, dysrhythmia, pericarditis, pneumothorax, aortic aneurysm/dissection, DVT/PE, anxiety, GERD, PUD, electrolyte imbalance, thyroid disorder, pneumonia, bronchitis, pancreatitis, and others Blood Pressure Screening Patient's blood pressure: Normal blood pressure Impression Primary Impression: Left sided chest pain Departure Information Dispostion Home / Self-Care Condition GOOD Forms IMPORTANT VISIT INFORMATION Patient Instructions My [facility] Additional Instructions You were seen and evaluated today on an emergency basis only. This is not a substitute for, or an effort to provide, complete comprehensive medical care. It is not possible to recognize and treat all injuries or illnesses in a single emergency department visit. For this reason it is recommended that you followup with your primary care physician tomorrow for recheck of your condition. Drink plenty of fluids and remain well hydrated. You are welcome to return to the emergency department anytime with new, worsening, or concerning symptoms.
== END 2017-03-21 01:38 | disposition home or self-care (01) ==
LOC: C.EDB 22:10
DX: R07.9 Chest pain, unspecified (principal); R06.00 Dyspnea, unspecified; R10.9 Unspecified abdominal pain; Z86.718 Personal history of other venous thrombosis and embolism; Z86.711 Personal history of pulmonary embolism

== ENCOUNTER → 2017-05-08 | Outpatient (CLI) | payer OTHER ==
[~2017-05-08] MED LIST changes: -ALBU1AER9 INH; +FEXO1TAB49 PO; -NYSTCRE11 TD; +OMEG100046 PO; +SYN50 PO; +VNTHFA/IN INH; +[UNRECOGNIZED DRUG - OTHER] PO; +[UNRECOGNIZED DRUG - OTHER] PO
[2017-05-08 11:15] LABS: ALT/SGPT 45 U/L (12-78); AST/SGOT 24 U/L (15-37); BLOOD UREA NITROGEN 20 mg/dl (7-18); BUN/CREATININE RATIO 24.1 (10-20); CARBON DIOXIDE 26 mmol/L (21-32); CHLORIDE 103 mmol/L (98-107); CREATININE 0.81 mg/dl (0.60-1.20); GLUCOSE 87 mg/dl (70-99); SODIUM 134 mmol/L (136-145)
[2017-05-08 11:25] LABS: ALB/GLOB RATIO 1.1 (0.9-2); ALKALINE PHOSPHATASE 64 U/L (45-117); CHOLESTEROL 278 mg/dl (0-200); CHOLESTEROL/HDL RATIO 4.3; HDL CHOLESTEROL 64 mg/dl; LDL CHOLESTEROL CALCULATED 193 mg/dl; TRIGLYCERIDES 106 mg/dl (0-150); VERY LOW DENSITY LIPOPROT CALC 21 mg/dl
[2017-05-08 13:04] LABS: ESTIMATED AVERAGE GLUCOSE 108 mg/dl; HA1C FLAG Normal (Normal)
== END | disposition home or self-care (01) ==
LOC: C.LABBC 09:46
PROVIDERS: ATTEND Family Medicine
DX: E03.9 Hypothyroidism, unspecified (principal); E78.00 Pure hypercholesterolemia, unspecified; R53.83 Other fatigue

== ENCOUNTER → 2017-09-02 | Outpatient (CLI) | payer OTHER ==
[~2017-09-02] VITALS: Ht 167.6 cm; Wt 96.5 kg
[2017-09-02 09:16] VITALS: BP 102/67; PULSE 80; Ht 167.6 cm; Wt 96.5 kg
== END | disposition home or self-care (01) ==
LOC: C.NEUR 08:30
PROVIDERS: ATTEND Internal Medicine Pulmonary Disease
DX: G47.33 Obstructive sleep apnea (adult) (pediatric) (principal)

== ENCOUNTER → 2017-10-27 | Outpatient (CLI) | payer OTHER ==
[2017-10-27 12:24] LABS: ALBUMIN 3.8 gm/dl (3.4-5.0); AST/SGOT 28 U/L (15-37); BLOOD UREA NITROGEN 19 mg/dl (7-18); CALCIUM 8.6 mg/dl (8.5-10.1); CARBON DIOXIDE 26 mmol/L (21-32); CHOLESTEROL 266 mg/dl (0-200); CREATININE 0.75 mg/dl (0.60-1.20); GLUCOSE 102 mg/dl (70-99); POTASSIUM 4.1 mmol/L (3.5-5.1); SODIUM 137 mmol/L (136-145)
[2017-10-27 12:34] LABS: ALKALINE PHOSPHATASE 66 U/L (45-117); ALT/SGPT 52 U/L (12-78); LDL CHOLESTEROL CALCULATED 192 mg/dl; TOTAL PROTEIN 7.2 gm/dl (6.4-8.2)
== END | disposition home or self-care (01) ==
LOC: C.LABBC 08:31
PROVIDERS: ATTEND Family Medicine
DX: E03.9 Hypothyroidism, unspecified (principal); E78.00 Pure hypercholesterolemia, unspecified; G47.30 Sleep apnea, unspecified; E55.9 Vitamin D deficiency, unspecified

== ENCOUNTER 2019-08-28 14:14 | Observation (INO) ==
--- NOTE | 2019-08-28 14:23 | Emergency Department Note ---
Past Med/Surg History Family History Mother Acute myocardial infarction Allergic rhinitis Asthma Stroke Family history of deafness or hearing loss Hypercholesteremia Sister Breast cancer Allergic rhinitis Asthma History of deep venous thrombosis Hypercholesteremia Hypertension Local recurrence of carcinoma of breast Brother History of emphysema Family history of deafness or hearing loss Liver cancer Type C viral hepatitis Hypertension Diabetes Grandmother (Maternal) Stroke Father Hypercholesteremia Family/Other Sinus disorder Denies family history of Bleeding disorder Social History marital status: Current Living Situation: Spouse and Family Current Living Situation Comment: parent; sexually active current occupational status: employed 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 Feels Safe at Home: Yes Smoking Status: Never smoker Hx Alcohol Use: No Hx Substance Use: No Dental Care, Regularly: Yes Physical Activity Frequency: Daily Seatbelt Use: always Sunscreen Use: Yes Results & Data Vital Signs Vital Signs - 24 hr 08/28/19 14:17 Temperature Source Oral Pulse Rate 84 Respiratory Rate 16 Blood Pressure 157/90 H Blood Pressure Mean 112 Pulse Oximetry 97 Sepsis Recent Fever Within 48 Hours No Sepsis New/Unexplained Change in Mental Status No Sepsis Action Taken by Nursing No Action Required Discharge Plan Visit Data Chief Complaint: Leg Injury/Pain Stated Complaint: +DVT R LEG ED Provider: Jung Lennon Prescriptions Prescriptions: No Action prednisone 10 mg tablet See Rx Instructions PO DAILY Qty: 18 RF: 0 levothyroxine 75 mcg tablet 75 mcg PO DAILY Qty: 90 RF: 3 omega-3 fatty acids [Fish Oil Concentrate] 1,000 mg capsule 1,000 mg PO DAILY RF: 0 albuterol sulfate 90 mcg/actuation HFA aerosol inhaler See Rx Instructions inhalation .COMPLEX RF: 0 cholecalciferol (vitamin D3) 2,000 unit capsule 2,000 units PO DAILY Qty: 30 RF: 0 Glucosamine-Chondr (boswellia) 974-923-55-1-3 mg tablet See Rx Instructions PO .COMPLEX PRN (Reason: Unknown) RF: 0 fexofenadine 180 mg tablet 180 mg PO DAILY PRN (Reason: Allergy Symptoms) RF: 0 ondansetron 4 mg tablet,disintegrating 4 mg PO Q8H PRN (Reason: nausea and vomiting) Qty: 10 RF: 0
--- NOTE | 2019-08-28 14:38 | Emergency Department Note ---
History of Present Illness General Chief complaint: Leg Injury/Pain Stated complaint: +DVT R LEG Time Seen by Provider: 08/28/19 14:20 History of Present Illness Maximum Pain Intensity: 5 The patient is a 58-year-old female who presented to the emergency department for an evaluation of right leg pain. The patient has had an episode of shingles in July of this year. Afterwards she was starting to have right lower extremity pain. Initially this was felt to be secondary to postherpetic neuralgia. She did have a course of antiviral medication but was recently started on prednisone when she was seen at her primary care physician's office last Wednesday. Over the last 24 hours she started to notice that the right lower extremity was swollen and discolored. This prompted a call to the primary care physician today. The patient requested an ultrasound. The patient's ultrasound did reveal an extensive right lower extremity DVT. She was sent to the emergency department directly from ultrasound. The patient states her pain is moderate at this time. She has been taking all of her medications as prescribed. She denies having any chest pain or shortness of breath. She has no nausea or vomiting. She is noticed no rectal bleeding. Home Medications Home Medications Medication Instructions Recorded Confirmed Type levothyroxine 75 mcg tablet 75 mcg PO DAILY #90 tab 11/17/18 08/28/19 Rx omega-3 fatty acids 1,000 mg 1,000 mg PO DAILY 12/01/18 08/28/19 History capsule albuterol sulfate 90 mcg/actuation See Rx Instructions INHALATION 01/16/19 08/28/19 History aerosol inhaler .COMPLEX gm cholecalciferol (vitamin D3) 50 2,000 units PO DAILY #30 cap 01/16/19 08/28/19 History mcg (2,000 unit) capsule glucosamine 750 [id number] See Rx Instructions PO .COMPLEX 01/16/19 History no.7 644 mg-vit [id number] PRN tab tablet fexofenadine 180 mg PO DAILY PRN 07/02/19 08/28/19 History prednisone 10 mg tablet See Rx Instructions PO DAILY #18 08/25/19 08/28/19 Rx tab Allergies Allergy/AdvReac Type Severity Reaction Status Date / Time Sulfa (Sulfonamide Allergy Mild UNKNOWN Verified 08/28/19 15:29 Antibiotics) ibuprofen Allergy Unknown Verified 08/28/19 15:29 Quinolones Allergy Unknown FELT LIKE Verified 08/28/19 15:29 Past Med/Surg History Family History Mother Acute myocardial infarction Allergic rhinitis Asthma Stroke Family history of deafness or hearing loss Hypercholesteremia Sister Breast cancer Allergic rhinitis Asthma History of deep venous thrombosis Hypercholesteremia Hypertension Local recurrence of carcinoma of breast Brother History of emphysema Family history of deafness or hearing loss Liver cancer Type C viral hepatitis Hypertension Diabetes Grandmother (Maternal) Stroke Father Hypercholesteremia Family/Other Sinus disorder Denies family history of Bleeding disorder Social History Preferred Language: Korean Communication Ability: Effective Economics Professor Required: No Beliefs That Will Affect Care: None marital status: Current Living Situation: Spouse Current Living Situation Comment: parent; sexually active current occupational status: employed current occupation: financial accounting manager/helper teacher Other Information That Helps Us Care for You: No Feels Safe at Home: Yes Safety Concerns: Feels Safe At This Time Smoking Status: Never smoker Do You Dip or Chew Tobacco: No ; Second Hand Exposure: No ; Tobacco Cessation Education Requested by Patient: No Hx Alcohol Use: Yes Hx Substance Use: No Dental Care, Regularly: Yes Physical Activity Frequency: Daily Seatbelt Use: always Sunscreen Use: Yes Review of Systems See HPI for pertinent positives & negatives. and A total of 10 systems reviewed and were otherwise negative Physical Exam Vital Signs Vital Signs - 24 hr 08/28/19 14:17 08/28/19 15:00 08/28/19 15:15 Temperature Source Oral Pulse Rate 84 Pulse Rate [Left] 67 Respiratory Rate 16 16 Respiratory Effort / Characteristics Non-Labored Spontaneous Respiratory Depth Normal Respiratory Pattern Blood Pressure 157/90 H Blood Pressure [Right Arm] 128/88 Blood Pressure Mean 112 Blood Pressure Mean [Right Arm] 101 Blood Pressure Position [Right Arm] Lying Pulse Oximetry 97 98 99 Oxygen Delivery Method Room Air Room Air Sepsis Recent Fever Within 48 Hours No Sepsis New/Unexplained Change in Mental Status No Sepsis Action Taken by Nursing No Action Required 08/28/19 15:30 Temperature Source Pulse Rate Pulse Rate [Left] 76 Respiratory Rate 16 Respiratory Effort / Characteristics Non-Labored Spontaneous Respiratory Depth Normal Respiratory Pattern Regular Blood Pressure Blood Pressure [Right Arm] 117/75 Blood Pressure Mean Blood Pressure Mean [Right Arm] 89 Blood Pressure Position [Right Arm] Lying Pulse Oximetry 98 Oxygen Delivery Method Room Air Sepsis Recent Fever Within 48 Hours Sepsis New/Unexplained Change in Mental Status Sepsis Action Taken by Nursing GENERAL: Patient is awake alert in no acute distress patient is resting comfortably and showing no signs of anxiety EYES: The conjunctivae are clear. The pupils are round and reactive. EARS, NOSE, MOUTH AND THROAT: The nose is without any evidence of any deformity. Mucous membranes are moist. Tongue is midline. NECK: The neck is nontender and supple. RESPIRATORY: Normal respiratory effort is noted there is no evidence of wheezing rhonchi or rales CARDIOVASCULAR: Regular rate and rhythm noted there no murmurs rubs or gallops normal S1 normal S2. GASTROINTESTINAL: The abdomen is soft. Abdomen is nontender. MUSCULOSKELETAL/EXTREMITIES: There is no evidence of gross deformity full range of motion is noted in the hips and shoulders. SKIN: There is no obvious evidence of any rash. Pulses are symmetric in both feet and groins. There is symmetric swelling and discoloration to the right lo wer extremity. There is calf tenderness on the right lower extremity. NEUROLOGIC: Patient is awake alert and oriented x3. Course Course 1430: I discussed the patient's presentation as well as the patient's ultrasound report with Dr. Kamara At this time she would recommend parenteral anticoagulation given the location of the clot. 1533: I discussed this case with Dr. Hernandez with the [facility] hospitalist group. They have agreed to evaluate the patient in the emergency department for further management disposition. Administered Medications Acetaminophen (Tylenol) 650 mg PO Q4H PRN PRN Reason: pain/fever Stop: 09/27/19 18:26 Last Admin: 08/29/19 03:38 Dose: 650 mg Documented by: [id number] Admin: 08/28/19 22:13 Dose: 650 mg Documented by: [id number] Enoxaparin Sodium (Lovenox) 100 mg SQ Q12H [facility] Stop: 09/28/19 04:59 Last Admin: 08/29/19 05:42 Dose: 100 mg Documented by: [id number] Fish Oil ([place]-3 (Purified Fish Oil)) 1 gm PO DAILY MAG Stop: 09/28/19 08:59 Last Admin: 08/29/19 08:07 Dose: 1 gm Documented by: [id number] Ioversol (Optiray 320 125ml) 59 ml IV ONCE PRN PRN Reason: Interaction Checking Stop: 09/01/19 19:54 Last Admin: 08/28/19 19:55 Dose: 59 ml Documented by: [id number] Levothyroxine Sodium (Synthroid) 75 mcg PO DAILYBB [facility] Stop: 09/28/19 06:29 Last Admin: 08/29/19 05:43 Dose: 75 mcg Documented by: [id number] Vitamin D (Vitamin D3) 2,000 units PO DAILY MAG Stop: 09/28/19 08:59 Last Admin: 08/29/19 08:07 Dose: 2,000 units Documented by: [id number] Discontinued Medications Enoxaparin Sodium (Lovenox) 100 mg SQ NOW ONE Stop: 08/28/19 15:31 Last Admin: 08/28/19 15:53 Dose: 100 mg Documented by: [id number] Critical Care Time Critical Care Time: Yes Total Critical Care Time: 45 I have personally spent greater than 45 minutes of critical care time in the direct management of this patient. This includes bedside care, interpretation of diagnostic studies, and testing, discussion with consultants, patient, and family members, and other required patient management activities. This 45 minutes is in excess of all separately billable procedures. Medical Decision Making Differential Diagnosis Etiologies such as DVT, joint effusion, infection, trauma, muscular, lymphedema, idiopathic, CHF, as well as others were entertained. Laboratory Data Result diagrams: 08/29/19 05:57 08/29/19 05:57 Lab Results 08/28/19 08/28/19 08/28/19 Range/Units 14:57 14:57 14:57 WBC 12.24 H (4.8-10.8) K/uL RBC 4.49 (4.2-5.4) M/uL Hgb 14.6 (12.0-16.0) g/dL POC Hgb (12.0-16.0) g/dl Hct 42.9 (37-47) % POC Hct (37-47) % MCV 95.5 (80-100) fL MCH 32.5 (25-34) pg MCHC 34.0 (32-36) g/dL RDW Std Deviation 45.8 (36.4-46.3) fL RDW Coeff of Ty 13.3 (11.5-14.5) % Plt Count 206 (130-400) K/uL MPV 9.4 (7.4-10.4) fL Immature Gran % (Auto) 0.4 % Neut % (Auto) 89.8 % Lymph % (Auto) 5.2 % [place] % (Auto) 4.2 % Eos % (Auto) 0.2 % Baso % (Auto) 0.2 % Immature Gran # (Auto) 0.05 H (0.00-0.02) K/uL Neut # (Auto) 10.99 H (1.4-6.5) K/uL Lymph # (Auto) 0.64 L (1.2-3.4) K/uL [place] # (Auto) 0.51 (0.11-0.59) K/uL Eos # (Auto) 0.03 (0-0.5) K/uL Baso # (Auto) 0.02 (0-0.2) K/uL PT 10.4 (9.0-12.0) Seconds INR 1.0 (0.9-1.1) APTT 23.3 (21.0-31.0) Seconds PTT Ratio 0.8 POC Sodium (135-144) mmol/L Sodium 139 (136-145) mmol/L POC Potassium (3.3-5.0) mmol/L Potassium 4.0 (3.5-5.1) mmol/L POC Chloride (101-112) mmol/L Chloride 106 (98-107) mmol/L Carbon Dioxide 26 (21-32) mmol/L POC Total CO2 (24-31) mEq/l Anion Gap 7.0 (3-11) POC Anion Gap (16-25) mmol/L POC BUN (7-18) mg/dl BUN 21 H (7-18) mg/dl Creatinine 0.81 (0.6-1.2) mg/dl POC Creatinine (0.6-1.3) mg/dl Est Cr Clr Drug Dosing 90.2 ml/min Est GFR ( Amer) 94.1 Est GFR (Non-Af Amer) 81.2 BUN/Creatinine Ratio 25.4 H (10-20) Glucose 139 H (70-99) mg/dl POC Glucose (other) (70-99) mg/dl Calcium 9.2 (8.5-10.1) mg/dl POC Ioniz Calcium Patt (1.12-1.32) mmol/l Magnesium 2.4 (1.8-2.4) mg/dl Total Bilirubin 0.4 (0.2-1) mg/dl AST 43 H (15-37) U/L ALT 83 H (12-78) U/L Alkaline Phosphatase 66 (45-117) U/L Total Creatine Kinase 60 (26-192) U/L CK-MB (CK-2) 1.5 (0.5-3.6) ng/ml CK/CKMB % Calc 2.5 (0-3.0) POC Troponin I (0-0.045) ng/ml Troponin I < 0.015 (0-0.045) ng/ml Total Protein 7.7 (6.4-8.2) gm/dl Albumin 3.6 (3.4-5.0) gm/dl Globulin 4.1 H (2.5-4.0) gm/dl Albumin/Globulin Ratio 0.9 (0.9-2) Lipase 186 (73-393) U/L TSH 0.358 (0.300-4.500) uIu/ml Specimen Hemolysis 08/28/19 08/28/19 Range/Units 15:04 15:05 WBC (4.8-10.8) K/uL RBC (4.2-5.4) M/uL Hgb (12.0-16.0) g/dL POC Hgb 13.3 (12.0-16.0) g/dl Hct (37-47) % POC Hct 39 (37-47) % MCV (80-100) fL MCH (25-34) pg MCHC (32-36) g/dL RDW Std Deviation (36.4-46.3) fL RDW Coeff of Ty (11.5-14.5) % Plt Count (130-400) K/uL MPV (7.4-10.4) fL Immature Gran % (Auto) % Neut % (Auto) % Lymph % (Auto) % [place] % (Auto) % Eos % (Auto) % Baso % (Auto) % Immature Gran # (Auto) (0.00-0.02) K/uL Neut # (Auto) (1.4-6.5) K/uL Lymph # (Auto) (1.2-3.4) K/uL [place] # (Auto) (0.11-0.59) K/uL Eos # (Auto) (0-0.5) K/uL Baso # (Auto) (0-0.2) K/uL PT (9.0-12.0) Seconds INR (0.9-1.1) APTT (21.0-31.0) Seconds PTT Ratio POC Sodium 139 (135-144) mmol/L Sodium (136-145) mmol/L POC Potassium 4.0 (3.3-5.0) mmol/L Potassium (3.5-5.1) mmol/L POC Chloride 106 (101-112) mmol/L Chloride (98-107) mmol/L Carbon Dioxide (21-32) mmol/L POC Total CO2 27 (24-31) mEq/l Anion Gap (3-11) POC Anion Gap 11.0 L (16-25) mmol/L POC BUN 22 H (7-18) mg/dl BUN (7-18) mg/dl Creatinine (0.6-1.2) mg/dl POC Creatinine 0.7 (0.6-1.3) mg/dl Est Cr Clr Drug Dosing ml/min Est GFR ( Amer) Est GFR (Non-Af Amer) BUN/Creatinine Ratio (10-20) Glucose (70-99) mg/dl POC Glucose (other) 133 H (70-99) mg/dl Calcium (8.5-10.1) mg/dl POC Ioniz Calcium Patt 1.13 (1.12-1.32) mmol/l Magnesium (1.8-2.4) mg/dl Total Bilirubin (0.2-1) mg/dl AST (15-37) U/L ALT (12-78) U/L Alkaline Phosphatase (45-117) U/L Total Creatine Kinase (26-192) U/L CK-MB (CK-2) (0.5-3.6) ng/ml CK/CKMB % Calc (0-3.0) POC Troponin I < 0.03 (0-0.045) ng/ml Troponin I (0-0.045) ng/ml Total Protein (6.4-8.2) gm/dl Albumin (3.4-5.0) gm/dl Globulin (2.5-4.0) gm/dl Albumin/Globulin Ratio (0.9-2) Lipase (73-393) U/L TSH (0.300-4.500) uIu/ml Specimen Hemolysis Imaging Data Radiologist's Impression: [facility] [place] [phone] XRay Report Patient: TRACY CURRIE Date: 08/28/19 MR#: [id number]: 47 [address] Acct ID:[id number]: Date: [address] Zip: [place] [address] Age: 58Location: ED Sex: F Room/Bed: Att Phy:Diagnosis: +DVT R LEG Jaja Phy: Ayse Oliva, DOService Date: 08/28/19 Fam Phy:Interpreting Phy: Tony Isidro MD Admit Phy: Ordering Phy: Jung Lennon DO cc: ~ XR chest 1V portable CLINICAL HISTORY: Chest pain dyspnea COMPARISON STUDY: 03/20/2017 FINDINGS: The bones soft tissues and hemidiaphragms are normal. The cardiomediastinal silhouette is normal. The lungs are clear. The pulmonary vasculature is normal. IMPRESSION: Negative chest. ACT 112: Negative or not required by law. The above report was generated using voice recognition software. It may contain grammatical, syntax or spelling errors. ECG Data Attestation: I personally reviewed and interpreted this ECG as follows: Indication: + other (extensive DVT) Rate (beats per minute): 75 Rhythm: + normal sinus; no atrial fibrillation, no junctional and no sinus tachycardia ECG ST segments: + Normal ST segments; no ST depression and no ST elevation Additional Comments: Normal sinus rhythm 75 bpm. No ectopy no acute ST segment abnormalities noted. No significant change from 03/20/2017 Blood Pressure Blood Pressure Findings: Normal blood pressure MDM Narrative The patient is a 58-year-old female who presented to the emergency department for an evaluation of right lower extremity pain. The patient had an outpatient Doppler which revealed a large extensive right lower extremity DVT. The patient was sent to the emergency department directly from ultrasound. I discussed the patient's laboratory and radiographic studies with her. She was started on Lovenox after I discussed her case with the aircraft navigator as well as the on-call [facility] hospitalist group. The hospitalist group is agreed to evaluate the patient in the emergency department for further management disposition. Impression & Plan DVT (deep venous thrombosis) Discharge Plan Visit Data *Final* Discharge Date/Time: 08/28/19 17:52 Chief Complaint: Leg Injury/Pain Stated Complaint: +DVT R LEG ED Provider: Jung Lennon Discharge Problem: DVT (deep venous thrombosis) Patient Disposition: Admitted As Inpatient Condition: Good Discharge Instructions Interventions: ED Discharge Assessment Last Done: 08/28/19 17:52 Discharge Problem: DVT (deep venous thrombosis) Qualifiers: DVT location: lower extremity Affected thrombotic vein of extremity: unspecified lower extremity proximal vein Chronicity: acute Laterality: right Qualified Code(s): I82.4Y1 - Acute embolism and thrombosis of unspecified deep veins of right proximal lower extremity
--- NOTE | 2019-08-28 14:47 | XRay Report ---
XR chest 1V portable CLINICAL HISTORY: Chest pain dyspnea COMPARISON STUDY: 03/20/2017 FINDINGS: The bones soft tissues and hemidiaphragms are normal. The cardiomediastinal silhouette is n ormal. The lungs are clear. The pulmonary vasculature is normal. IMPRESSION: Negative chest. ACT 112: Negative or not required by law. The above report was generated using voice recognition software. It may contain grammatical, syntax or spelling errors. Electronically signed by: Tony Isidro M.D. 08/28/2019 2:46 PM
[2019-08-28 15:10] LABS: Basophils # (auto) 0.02 K/uL (0-0.2); Basophils % (auto) 0.2 %; Eosinophils # (auto) 0.03 K/uL (0-0.5); Eosinophils % (auto) 0.2 %; Hematocrit (blood only) 42.9 % (37-47); Hemoglobin 14.6 g/dL (12.0-16.0); Immature Granulocytes # (auto) 0.05 K/uL (0.00-0.02); Immature Granulocytes % (auto) 0.4 %; Lymphocytes # (auto) 0.64 K/uL (1.2-3.4); Lymphocytes % (auto) 5.2 %; Mean Corpuscular Hemoglobin 32.5 pg (25-34); Mean Corpuscular Volume 95.5 fL (80-100); Mean Platelet Volume 9.4 fL (7.4-10.4); Monocytes # (auto) 0.51 K/uL (0.11-0.59); Monocytes % (auto) 4.2 %; Neutrophils # (auto) 10.99 K/uL (1.4-6.5); Neutrophils % (auto) 89.8 %; Platelet Count 206 K/uL (130-400); RDW Coefficient of Variation 13.3 % (11.5-14.5); RDW Standard Deviation 45.8 fL (36.4-46.3); Red Blood Count 4.49 M/uL (4.2-5.4); White Blood Count 12.24 K/uL (4.8-10.8)
[2019-08-28 15:25] LABS: Partial Thromboplastin Ratio 0.8; Partial Thromboplastin Time 23.3 Seconds (21.0-31.0); Prothrombin Time 10.4 Seconds (9.0-12.0)
[2019-08-28 15:25] LABS: iSTAT Creatinine 0.7 mg/dl (0.6-1.3); iSTAT Hemoglobin 13.3 g/dl (12.0-16.0); iSTAT Ionized Calcium 1.13 mmol/l (1.12-1.32)
[2019-08-28] MEDS ORDERED: ENOXAPARIN 100 MG/1ML SYR SQ ONE (15:30)
[2019-08-28 15:40] LABS: Alanine Aminotransferase 83 U/L (12-78); Albumin Globulin Ratio 0.9 (0.9-2); Albumin Level 3.6 gm/dl (3.4-5.0); Alkaline Phosphatase 66 U/L (45-117); Aspartate Aminotransferase 43 U/L (15-37); BUN Creatinine Ratio 25.4 (10-20); Bilirubin,Total 0.4 mg/dl (0.2-1); Blood Urea Nitrogen 21 mg/dl (7-18); Calcium 9.2 mg/dl (8.5-10.1); Carbon Dioxide 26 mmol/L (21-32); Chloride 106 mmol/L (98-107); Creatine Kinase 60 U/L (26-192); Creatine Kinase MB 1.5 ng/ml (0.5-3.6); Creatinine Clr Calc Pharmacy 90.2 ml/min; Est GFR (African American) 94.1; Est GFR (Non-African American) 81.2; Globulin 4.1 gm/dl (2.5-4.0); Glucose 139 mg/dl (70-99); Lipase 186 U/L (73-393); Magnesium 2.4 mg/dl (1.8-2.4); Sodium 139 mmol/L (136-145); Thyroid Stimulating Hormone 0.358 uIu/ml (0.300-4.500); Total Protein 7.7 gm/dl (6.4-8.2); Troponin I < 0.015 ng/ml (0-0.045)
--- NOTE | 2019-08-28 16:22 | History & Physical Report ---
Date of Service August 28, 2019 Assessment & Plan (1) DVT (deep venous thrombosis): Patient was started on a therapeutic dose Lovenox emergency room. We will continue this for 24 hours. I did discuss briefly in regards to changing over to a NOAC,can consider doing this in the morning. Will defer CT angiogram or echo as patient has no other symptoms than right lower extremity swelling. As this is a non-provoked DVT in a patient with a questionable history of factor V Leiden, suspect patient will require lifelong anticoagulation. Will check for factor V Leiden as well. As I do not suspect that the patient has postherpetic neuralgia, will discontinue prednisone. (2) Hypothyroidism: Continue levothyroxine as previously ordered. History of Present Illness Primary Care Provider: Ayse Oliva, This is a 58-year-old female with past medical history of DVT in the right lower extremity approximately 30 years ago that presents today complaining of lower right lower extremity pain and swelling. Patient is pleasant and a good historian. Patient tells me she was recently diagnosed with herpes zoster. She noted a rash on her right thigh that was of the painless. She was given antivirals and the rash resolved. She started having some pain across her right thigh more recently return to the primary care physician. She was told this was postherpetic neuralgia was started on prednisone. Unfortunately, this did not do anything for the pain she noticed some worsening swelling. She looked at her leg earlier today and noticed that it was much more swollen a little firm, and this prompted her to call her PCP again. She was sent for an outpatient lower extremity Dopplers found to have extensive right DVT. Patient presents emergency room for further evaluation. On further questioning, patient tells me that his leg that she had her thrombus in approximately 30 years ago. She also mentions that she may have been positiv e for factor V Leiden in the past. She has a sister who is had lower extremity DVT in the past, she was not aware of any clotting disorders in the family but found that her sister had May Thurner syndrome which is more of an anatomical issue. Patient denies any chest pain shortness breath palpitations or other systemic symptoms. Allergies Allergy/AdvReac Type Severity Reaction Status Date / Time Sulfa (Sulfonamide Allergy Mild UNKNOWN Verified 08/28/19 15:29 Antibiotics) ibuprofen Allergy Unknown Verified 08/28/19 15:29 Quinolones Allergy Unknown FELT LIKE Verified 08/28/19 15:29 Home Medications Home Medications Medication Instructions Recorded Confirmed Type levothyroxine 75 mcg tablet 75 mcg PO DAILY #90 tab 11/17/18 08/28/19 Rx omega-3 fatty acids 1,000 mg 1,000 mg PO DAILY 12/01/18 08/28/19 History capsule albuterol sulfate 90 mcg/actuation See Rx Instructions INHALATION 01/16/19 08/28/19 History aerosol inhaler .COMPLEX gm cholecalciferol (vitamin D3) 50 2,000 units PO DAILY #30 cap 01/16/19 08/28/19 History mcg (2,000 unit) capsule glucosamine 750 [id number] See Rx Instructions PO .COMPLEX 01/16/19 08/28/19 History no.7 644 mg-vit [id number]-[id number] PRN tab tablet fexofenadine 180 mg PO DAILY PRN 07/02/19 08/28/19 History prednisone 10 mg tablet See Rx Instructions PO DAILY #18 08/25/19 08/28/19 Rx tab Past Med/Surg History Family History Mother Acute myocardial infarction Allergic rhinitis Asthma Stroke Family history of deafness or hearing loss Hypercholesteremia Sister Breast cancer Allergic rhinitis Asthma History of deep venous thrombosis Hypercholesteremia Hypertension Local recurrence of carcinoma of breast Brother History of emphysema Family history of deafness or hearing loss Liver cancer Type C viral hepatitis Hypertension Diabetes Grandmother (Maternal) Stroke Father Hypercholesteremia Family/Other Sinus disorder Denies family history of Bleeding disorder Social History marital status: Current Living Situation: Spouse and Family Current Living Situation Comment: parent; sexually active current occupational status: employed current occupation: vice president financial/cost accountant Feels Safe at Home: Yes Smoking Status: Never smoker Hx Alcohol Use: No Hx Substance Use: No Dental Care, Regularly: Yes Physical Activity Frequency: Daily Seatbelt Use: always Sunscreen Use: Yes Review of Systems Constitutional: no fever, no chills, no weakness, no weight loss and no weight gain Eyes: as per Subjective / HPI Respiratory: no cough, no chest congestion, no dyspnea and no dyspnea on exertion Cardiovascular: no chest pain, no orthopnea, no palpitations, no lightheadedness and no edema Gastrointestinal: no abdominal pain, no nausea, no vomiting, no constipation and no diarrhea/loose stools Genitourinary: no dysuria, no difficulty urinating, no urinary frequency, no urinary hesitancy, no urinary urgency and no flank pain Musculoskeletal: no back pain, no neck pain, no joint pain, no stiffness and no myalgia Right lower extremity pain and swelling as described above Integumentary: no rash Neurologic: no gait abnormality, no unsteadiness, no falls and no generalized weakness Physical Exam Constitutional: cooperative; no acute distress Neck: trachea midline, no thyromegaly Respiratory: normal respiratory effort Auscultation: lungs clear to auscultation bilaterally; no crackles, no rales, no rhonchi and no wheezes Cardiovascular: Rate/Rhythm: regular rate and regular rhythm Heart Sounds: normal S1 and normal S2 Gastrointestinal (Abdomen): Inspection/Auscultation: abdomen normal to inspection Percussion/Palpation: abdomen soft; abdomen nontender, no guarding , abdomen not rigid and no hepatosplenomegaly Musculoskeletal: Right thigh with some firm swelling. Nontender. No rash noted. Distal pulses intact Skin: no rashes, warm and dry Results & Data Vital Signs (Past 12 Hours) Vital Signs Pulse Pulse Resp BP BP Pulse Ox 08/28/19 15:30 76 16 117/75 98 08/28/19 15:15 99 08/28/19 15:00 67 16 128/88 98 08/28/19 14:17 84 16 157/90 H 97 Laboratory Results WBC of 12.2, hemoglobin 14.6, hematocrit of 43.9, platelets 206. INR is 1. Sodium 139, potassium 4, chloride 106 CO2 26, BUN 21 creatinine 0.81. Glucose 139. Calcium 9.2. Magnesium 2.4. AST is elevated 43 and ALT is elevated at 83. Rest LFTs are normal. Troponin is nondetectable. Lipase 186. TSH is 0.358. Diagnostic Findings XR chest 1V portable CLINICAL HISTORY: Chest pain dyspnea COMPARISON STUDY: 03/20/2017 FINDINGS: The bones soft tissues and hemidiaphragms are normal. The c ardiomediastinal silhouette is normal. The lungs are clear. The pulmonary vasculature is normal. IMPRESSION: Negative chest. ---- US venous doppler LE RT CLINICAL HISTORY: M79.604 Pain in right leg COMPARISON STUDY: February 2009 FINDINGS: Grayscale color flow and spectral waveform analysis was performed. There is an extensive right leg DVT involvement of the right external iliac, common femoral vein, popliteal vein, both posterior tibial veins, and one of two paired Peroneal veins. IMPRESSION: Extensive acute right lower extremity DVT extending from the right external iliac vein through the proximal calf veins. PG Care Time/CCT Total # of Minutes Spent Total Time Spent with Patient: Total time spent is greater than 50% in coordination of care (as documented) at patient's floor/unit and/or counseling patient: Coding Level of Care Code 08721 OBS Care - Level 3 Diagnoses DVT (deep venous thrombosis) I82.409 Hypothyroidism E03.9
[2019-08-28] MEDS ORDERED: ONDANSETRON INJ 2 MG/ML 2 ML VIAL IV PRN (18:27)
[2019-08-28] MEDS ORDERED: FEXOFENADINE HCL 180 MG TAB PO PRN (18:27)
[2019-08-28] MEDS ORDERED: ALBUTEROL HFA 8 GM INHALER INH PRN (18:27)
[2019-08-28] MEDS ORDERED: ZOLPIDEM TARTRATE 5 MG TAB PO PRN (18:27)
[2019-08-28] MEDS ORDERED: OPTIRAY 320 125ml IV PRN (19:55)
--- NOTE | 2019-08-28 20:05 | CT Scan Report ---
CT ANGIOGRAM OF THE CHEST CLINICAL HISTORY: Atypical chest pain. COMPARISON STUDY: Chest x-ray dated 08/28/2019. Chest CT dated 03/20/2017. TECHNIQUE: Following the IV administration of 59 cc of Optiray 320, CT angiogram of the chest was per formed from the upper abdomen to the thoracic inlet utilizing the pulmonary embolus protocol. Images are reviewed in the axial, sagittal, and coronal planes. 3-D MIPS images are created and assessed. IV contrast was administered without complication. A dose lowering technique was utilized adhering to the principles of ALARA. CT DOSE: 745.69 mGy.cm FINDINGS: Thyroid: Atrophic and heterogeneous. Thoracic aorta: The thoracic aorta is normal in caliber and demonstrates standard 3-vessel arch anato my. No dissection is seen. Pulmonary vasculature: The pulmonary trunk is normal in caliber. There are no filling defects identif ied in main, lobar, or segmental pulmonary branches to suggest pulmonary embolus. Heart: The heart is normal in size and without pericardial effusion. Lungs and pleural spaces: Evaluation of the lung parenchyma is modestly degraded by motion artifact. There is no airspace consolidation or pleural effusion. Dependent atelectasis is noted at the lung ba ses. The trachea and central airways are clear. Scattered calcified granulomas are observed. Mediastinum: There is no mediastinal lymphadenopathy. Kianna: Clear. Axillae: There is no axillary lymphadenopathy. Upper abdomen: Cholecystectomy clips are noted. A small hiatal hernia is noted. Partially visualized upper abdominal viscera is within normal limits. Skeletal structures: No lytic or blastic bony lesions are seen. IMPRESSION: 1. There is no evidence of pulmonary embolus in the main, lobar, or segmental pulmonary arteries. 2. There is no airspace consolidation or pleural effusion. ACT 112: Negative or not required by law. Electronically signed by: Eriberto Pendleton M.D. 08/28/2019 8:04 PM
[2019-08-28] MEDS: ACETAMINOPHEN 325 MG TAB PO PRN (22:13)
[2019-08-29] MEDS: ACETAMINOPHEN 325 MG TAB PO PRN ×3 (03:38→22:45)
[2019-08-29] MEDS: ENOXAPARIN 100 MG/1ML SYR SQ SCH ×2 (05:42→16:03)
[2019-08-29] MEDS: LEVOTHYROXINE SODIUM 75 MCG TABLET PO SCH (05:43)
--- NOTE | 2019-08-29 06:15 | Electrocardiogram Report ---
Test Reason : Blood Pressure : / mmHG Vent. Rate : 075 BPM Atrial Rate : 075 BPM P-R Int : 116 ms QRS Dur : 094 ms QT Int : 376 ms P-R-T Axes : 037 012 032 degrees QTc Int : 419 ms Normal sinus rhythm Normal ECG When compared with ECG of 20-MAR-2017 22:18, No significant change was found Confirmed by David Holden ([id number]) on 08/29/2019 6:15:27 AM Referred By: Ayse Oliva Confirmed By:David Holden
[2019-08-29 06:25] LABS: Basophils # (auto) 0.03 K/uL (0-0.2); Basophils % (auto) 0.4 %; Eosinophils # (auto) 0.37 K/uL (0-0.5); Eosinophils % (auto) 4.4 %; Hematocrit (blood only) 39.8 % (37-47); Hemoglobin 13.3 g/dL (12.0-16.0); Immature Granulocytes # (auto) 0.03 K/uL (0.00-0.02); Immature Granulocytes % (auto) 0.4 %; Lymphocytes # (auto) 2.44 K/uL (1.2-3.4); Lymphocytes % (auto) 28.7 %; Mean Corpuscular Hemoglobin 31.7 pg (25-34); Mean Corpuscular Hgb Conc 33.4 g/dL (32-36); Mean Platelet Volume 9.2 fL (7.4-10.4); Monocytes # (auto) 0.72 K/uL (0.11-0.59); Monocytes % (auto) 8.5 %; Neutrophils # (auto) 4.91 K/uL (1.4-6.5); Neutrophils % (auto) 57.6 %; Platelet Count 200 K/uL (130-400); RDW Coefficient of Variation 13.3 % (11.5-14.5); RDW Standard Deviation 45.9 fL (36.4-46.3); Red Blood Count 4.19 M/uL (4.2-5.4)
[2019-08-29 06:59] LABS: BUN Creatinine Ratio 24.9 (10-20); Calcium 9.3 mg/dl (8.5-10.1); Creatinine Clr Calc Pharmacy 107.8 ml/min; Est GFR (African American) 113.9; Est GFR (Non-African American) 98.3; Potassium 3.8 mmol/L (3.5-5.1)
[2019-08-29] MEDS: CHOLECALCIFEROL 1,000 UNITS 25 MCG TAB PO SCH (08:07)
[2019-08-29] MEDS: OMEGA-3 (PURIFIED FISH OIL) 1 GM CAP PO SCH (08:07)
--- NOTE | 2019-08-29 20:14 | Hospitalist Progress Note ---
Date of Service August 29, 2019 Assessment & Plan (1) DVT (deep venous thrombosis): - U/S - extensive acute RLE DVT extending from the R external iliac vein through the proximal calf veins - CTA - negative for pulmonary embolus; no consolidation or pleural effusion - Pt has a H/O Factor V Leiden with H/O DVT x 35 years ago and reports trauma to the leg from sled riding with extensive bruising of the leg; prior to this she did have shingles (July) of the thigh - maybe causing some increased inflammation provoking this more? -- She reports her sister has May-Thurner syndrome and other sister has Factor V -- Given the location of her DVT maybe she is dealing with May-Thurner as wel l? - Given that this is a recurrent blood clot she may be a candidate for life-long anti-coagulation and discussed this with the patient - she is hoping this is not the case and maybe as mentioned above that some of this could have been provoked? but again has Factor V - discussed F/U with steam generating powerplant mechanic to discuss after current treatment and can be arranged in the coming months with Dr. Hunter or Dr. Mills - Continue therapeutic Lovenox; patient is going to think about Eliquis vs Xarelto and do some research she would like to avoid Coumadin; copay cards given to patient and will discuss and convert this in AM once decision is made (2) Hypothyroidism: Continue levothyroxine as previously ordered. Admission and Anticipated Discharge Date Admission Date: August 28, 2019 Subjective Overall feels well. Some ongoing pain in the thigh mostly with walking but did recently have shingles in this area as well. No signs of acute bleeding. Hemodynamically stable. Tolerating a diet without issue. Had a long discussion about anticoagulants and she would like to look them up and do some research. Review of Systems Constitutional: no fever and no chills Respiratory: no cough Cardiovascular: no chest pain Additional Comments: R thigh pain Gastrointestinal: no abdominal pain, no nausea, no vomiting, no constipation and no diarrhea/loose stools Genitourinary: no dysuria Integumentary: no rash Physical Exam Constitutional: WD/WN, vitals as above Eyes: + anicteric sclerae ENMT: Ears: no hearing impairment Neck: trachea midline Respiratory: normal respiratory effort Neurologic: moves all extremities Psychiatric: A+Ox3, euthymic affect Results & Data ([facility]) Vital Signs (Past 12 Hours) Vital Signs Temp Pulse Pulse Resp BP Pulse Ox 08/29/19 19:25 36.9 C 79 18 113/75 94 08/29/19 16:39 70 08/29/19 15:42 36.7 C 78 18 108/69 96 08/29/19 12:03 36.9 C 66 18 114/77 95 08/29/19 08:33 58 L PG Care Time/CCT Total # of Minutes Spent Total Time Spent with Patient: Total time spent is greater than 50% in coordination of care (as documented) at patient's floor/unit and/or counseling patient: Coding Level of Care Code 80087 Subseq Obs Care Lvl 1 Diagnoses DVT (deep venous thrombosis) I82.409 Hypothyroidism E03.9
[2019-08-30] MEDS: LEVOTHYROXINE SODIUM 75 MCG TABLET PO SCH (05:35)
[2019-08-30] MEDS: ENOXAPARIN 100 MG/1ML SYR SQ SCH (05:36)
[2019-08-30] MEDS: CHOLECALCIFEROL 1,000 UNITS 25 MCG TAB PO SCH (07:43)
[2019-08-30] MEDS: OMEGA-3 (PURIFIED FISH OIL) 1 GM CAP PO SCH (07:44)
[2019-08-30] MEDS: ACETAMINOPHEN 325 MG TAB PO PRN (08:07)
--- NOTE | 2019-08-30 14:30 | Discharge Summary ---
Date of Service August 30, 2019 Admission HPI Per Admitting Provider This is a 58-year-old female with past medical history of DVT in the right lower extremity approximately 30 years ago that presents today complaining of lower right lower extremity pain and swelling. Patient is pleasant and a good historian. Patient tells me she was recently diagnosed with herpes zoster. She noted a rash on her right thigh that was of the painless. She was given antivirals and the rash resolved. She started having some pain across her right thigh more recently return to the primary care physician. She was told this was postherpetic neuralgia was started on prednisone. Unfortunately, this did not do anything for the pain she noticed some worsening swelling. She looked at her leg earlier today and noticed that it was much more swollen a little firm, and this prompted her to call her PCP again. She was sent for an outpatient lower extremity Dopplers found to have extensive right DVT. Patient presents emergency room for further evaluation. On further questioning, patient tells me that his leg that she had her thrombus in approximately 30 years ago. She also mentions that she may have been positive for factor V Leiden in the past. She has a sister who is had lower extremity DVT in the past, she was not aware of any clotting disorders in the family but found that her sister had May Thurner syndrome which is more of an anatomical issue. Patient denies any chest pain shortness breath palpitations or other systemic symptoms. Principal Diagnosis Right leg DVT Discharge Exam Constitutional WD/WN, vitals as above Eyes PERRL, conjunctivae normal, anicteric sclerae ENMT external ear and nose normal, oropharynx normal Neck trachea midline, no thyromegaly Respiratory normal respiratory effort, lungs clear to auscultation Cardiovascular Rate/Rhythm: regular rate and regular rhythm Heart Sounds: normal S1 and normal S2; no murmur Vessels: no JVD Extremities: normal capillary refill, + calf tenderness (right leg) and + edema (mild swelling right leg) Gastrointestinal (Abdomen) normal bowel sounds, soft, nontender, no hepatosplenomegaly Musculoskeletal no cyanosis or clubbing, extremities motor strength 5/5 Skin no rashes, warm and dry Neurologic patellar DTR's 2+ bilat, sensation intact and PERRL, EOMI, accommodation nl, no face palsy, no dysarthria Psychiatric A+Ox3, euthymic affect Lymphatic no cervical or axillary lymphadenopathy Discharge Data Allergies Allergy/AdvReac Type Severity Reaction Status Date / Time Sulfa (Sulfonamide Allergy Mild UNKNOWN Verified 08/28/19 15:29 Antibiotics) ibuprofen Allergy Unknown Verified 08/28/19 15:29 Quinolones Allergy Unknown FELT LIKE Verified 08/28/19 15:29 Consultations 08/28/19 15:40 ED Decision to Admit Stat Ordered Studies 08/28/19 18:48 CT angio chest PE protocol Routine Hospital Course (1) DVT (deep venous thrombosis): - U/S - extensive acute RLE DVT extending from the R external iliac vein through the proximal calf veins likely triggered by recent Shingles flare in same location - CTA - negative for pulmonary embolus; no consolidation or pleural effusion - Pt has a H/O Factor V Leiden with H/O DVT x 35 years ago and reports trauma to the leg from sled riding with extensive bruising of the leg; prior to this she did have shingles (July) of the thigh - maybe causing some increased inflammation provoking this more? -- She reports her sister has May-Thurner syndrome and other sister has Factor V treated with Lovenox 1mg/kg q12 initially will transition to Xarelto 15mg BID x 3 weeks then 20mg daily follow up with PCP will need at least 6 months of therapy given that this is technically her second DVT she could use lifelong anticoagulation however, since the first occurrence was with an injury and this was around a Shingles flare, would get opinion from personalized living manager recommend referral in a few months to discuss duration of treatment (2) Hypothyroidism: Continue levothyroxine as previously ordered. Total Time Total Time Spent Total Time Spent (In Minutes): 25 minutes Total Time Includes: Examination of the Patient, Discharge Planning and Medication Reconciliation Discharge Plan Discharge Items Patient Disposition: Home - Self-Care Reason For Visit: DVT Discharge Diagnosis: Right leg DVT Condition on Discharge: Good Goals: treatment of right leg DVT with Xarelto follow up with PCP in a week outpatient referral to personalized living manager in a few months Activity: Resume your previous activity Driving/Machine Use: No limitations Weightbearing: Full weightbearing Non-emergency contact: Primary Care Provider Call non-emergency contact if: you have any medication questions, your symptoms worsen and your pain is not controlled Follow-up/Referrals: Ayse Oliva DO [Primary Care Provider] - (Patient will call to make appointment. ) Diet: Regular Addtl Attending Provider Instructions: Medications: - XARELTO: 15mg twice a day for 3 weeks and then 20mg daily, will need at least 6 months of therapy Right leg DVT no evidence of pulmonary embolism on CT of the chest treated with Lovenox twice a day while you were here, change to Xarelto on discharge follow up with Dr. Oliva in a week suggest a referral to hematology in a few months to help determine duration of treatment likely triggered by recent shingles flare Pending Studies at Discharge: No Stand-Alone Forms[facility] C[facility] Medications and DC Order Prescriptions: New Xarelto 15 mg (42)- 20 mg (9) tablets,dose pack 1 ea PO UD Qty: 51 RF: 0 Xarelto 20 mg tablet 20 mg PO PM Qty: 30 RF: 3 Continued prednisone 10 mg tablet See Rx Instructions PO DAILY Qty: 18 RF: 0 levothyroxine 75 mcg tablet 75 mcg PO DAILY Qty: 90 RF: 3 omega-3 fatty acids [Fish Oil Concentrate] 1,000 mg capsule 1,000 mg PO DAILY RF: 0 albuterol sulfate 90 mcg/actuation HFA aerosol inhaler See Rx Instructions inhalation .COMPLEX RF: 0 cholecalciferol (vitamin D3) 2,000 unit capsule 2,000 units PO DAILY Qty: 30 RF: 0 Glucosamine-Chondr (boswellia) 984-974-92-1-3 mg tablet See Rx Instructions PO .COMPLEX PRN (Reason: Unknown) RF: 0 fexofenadine 180 mg tablet 180 mg PO DAILY PRN (Reason: Allergy Symptoms) RF: 0 Discharge Orders: Discharge Order (Routine); Ordered 08/30/19 Ordered By: Ab Best Admission Data Admit Date/Time: 08/28/19 16:24 Attending Provider: Ab Best Admit Provider: Kahlil Hernandez Primary Care Provider: Ayse Oliva Other Providers: Kahlil Hernandez Other Interventions: Discharge Summary Assessment (RN) Last Done: 08/30/19 09:36 DC Date/Time DO NOT enter until pt leaves facility: 08/30/19 10:02 Coding Level of Care Code 16393 OBS Care - Discharge Diagnoses DVT (deep venous thrombosis) I82.409 Hypothyroidism E03.9
== END 2019-08-30 10:02 | disposition home or self-care (01) ==
LOC: ED 14:14 → 2N 14:14 → SUATTDRO 16:24 → 2N 17:52

== ENCOUNTER 2022-08-20 17:29 | Inpatient (IN) ==
--- NOTE | 2022-08-20 18:56 | Emergency Department Note ---
Impression & Plan Sigmoid diverticulitis, Lower abdominal pain ED Provider Note Provider: Adria De León MD DATE OF SERVICE: 08/20/2022 CHIEF COMPLAINT: Lower abdominal pain HISTORY OF PRESENT ILLNESS: Patient is a 61-year-old female history of diverticulosis as well as hypothyroidism and factor V presenting here today reporting she over the past approximately 5 days has had increased urination and lower abdominal discomfort. Denies burning with urination. Denies nausea or vomiting. Has been eating. No chest pain or shortness of breath reported. Did have a colonoscopy a month or 2 ago. States she was told she has diverticulosis. No trauma reported. Seen in the PCP office and sent here due to prior authorization issues obtaining an outpatient CT. Some mildly similar symptoms occurred in May when she had a UTI and improved with Macrobid. Reports high pain tolerance with slight radiation to the back. Pain not down the legs but worse with some movements. PAST MEDICAL HISTORY: As noted above MEDICATIONS: Reviewed home medications SOCIAL HISTORY: Non-smoker PHYSICAL EXAM: GENERAL: alert and oriented in no acute distress on stretcher Head: normocephalic and atraumatic EYES: No injection, discharge or icterus. NECK: Trachea midline. LUNGS: Airway patent. No retractions or tachypnea HEART: Regular rate and rhythm. No chest wall tenderness ABDOMEN: Soft with some mid to left lower quadrant abdominal tenderness. SKIN: Acyanotic, warm, dry, without rashes EXTREMITIES: Without swelling, tenderness or deformity NEUROLOGICAL: No focal deficits. No aphasia. No facial droop or slurred speech. Ambulatory. PDMP was checked without noted issue. Patient's laboratory studies and imaging reviewed. Differential includes Appendicitis, infections, diverticulitis, UTI, obstruc tion, mesenteric ischemia, aortic pathology, inflammatory bowel disease, renal colic, PUD, pancreatitis, biliary pathology, hernia, volvulus, constipation, as well as other pathologies. IMPRESSION/MEDICAL DECISION MAKING: Patient with some lower abdominal discomfort. No trauma history. No nausea or vomiting. Urine sample sent and not impressive for infection. Did have outpatient UAs that were negative as well. No significant leukocytosis or anemia on blood work. Ongoing lower abdominal pain with a history of diverticulosis to complete a CT scan to look for possible diverticulitis or o ther intra-abdominal pathology. Not having active chest pain or shortness of breath and doubt acute cardiac or pulmonary complication. No significant chemistry abnormalities with normal electrolytes and stable renal function. Slight AST and ALT elevation of 55 and 73 as noted with no bilirubin elevation. Doubt obstructive biliary pathology. Not clearly hepatitis. Lipase not elevated. Declined pain medication here. CT scan per my review and report shows evidence of some sigmoid diverticulitis with evidence of a possible mural abscess 2.1 cm in dimension without free air. No extraluminal abscess seen. Given this ordered a dose of Zosyn. Discussed with her and family. Recommend further observation and care in the hospital for IV antibiotics. Hospitalist team was contacted. DIAGNOSIS: Sigmoid diverticulitis with abscess DISPOSITION: Hospitalist will evaluate Patient was agreeable with this plan. Past Med/Surg History Medical History Diverticulosis Factor V Leiden mutation GERD (gastroesophageal reflux disease) Hiatal hernia History of diverticulitis History of DVT (deep vein thrombosis) History of pancreatitis History of pulmonary embolism Hypercholesterolemia Hypothyroidism IBS (irritable bowel syndrome) Sleep apnea TMJ (temporomandibular joint disorder) Surgical History History of section History of colonoscopy History of esophagogastroduodenoscopy (EGD) History of laparoscopic cholecystectomy History of laparoscopy History of loop electrical excision procedure (LEEP) History of total abdominal hysterectomy Family History Mother Family history of deafness or hearing loss Acute myocardial infarction Hypercholesteremia Allergic rhinitis Stroke Asthma Sister History of deep venous thrombosis Local recurrence of carcinoma of breast Scleroderma Hypercholesteremia Breast cancer Allergic rhinitis Hypertension Asthma PONV (postoperative nausea and vomiting) Brother Liver cancer Diabetes Family history of deafness or hearing loss Type C viral hepatitis History of emphysema Hypertension Grandmother (Maternal) Stroke Father Hypercholesteremia Family/Other Sinus disorder Denies family history of Bleeding disorder Social History Smoking Status: Never smoker Second Hand Exposure: Yes (as a child); Hx Alcohol Use: Yes Alcohol Intake Frequency: Monthly or Less Hx Substance Use: No Preferred Language: Khmer Communication Ability: Effective Visual Impairment: No Limitations Hearing Ability: Normal [employer] Incident Responder Required: No Beliefs That Will Affect Care: None marital status: Current Living Situation: Spouse current occupational status: employed current occupation: patient financial representative/highway maintainer Feels Safe at Home: Yes Childhood Exposure to Second-Hand Smoke: Yes Diet Comment: optivia caffeine: Yes during the past year weight has: decreased > 10 lbs Dental Care, Regularly: Yes Physical Activity Frequency: Daily Seatbelt Use: always Sunscreen Use: Yes Assistive Devices: Glasses Allergies Allergies Allergy/AdvReac Type Severity Reaction Status Date / Time ibuprofen Allergy Intermediate Hives Verified 08/20/22 20:36 Sulfa (Sulfonamide Allergy Unknown CAN'T Verified 08/20/22 20:36 Antibiotics) REMEMBER Quinolones AdvReac Intermediate FELT LIKE Verified 08/20/22 20:36 Home Meds Home Medications Medication Instructions Recorded Confirmed cholecalciferol (vitamin D3) 50 2,000 units PO QAM #30 caps 01/16/19 08/20/22 mcg (2,000 unit) capsule Cardio FX 1 ea PO BID 11/28/20 08/20/22 Immune FX 1 ea PO BID 11/28/20 08/20/22 aspirin 81 mg tablet,delayed 81 mg PO QPM 11/28/20 08/20/22 release (Adult Low Dose Aspirin) fexofenadine 180 mg tablet 180 mg PO DAILY PRN Allergy 02/24/21 08/20/22 (Twila Allergy) Symptoms lifitegrast 5 % eye drops in a 1 drp ophthalmic (eye) QPM 08/25/21 08/20/22 dropperette (Xiidra) [place]well[place] 1 tab PO QAM 05/19/22 08/20/22 Probiotic 1 cap PO QAM 05/19/22 08/20/22 Total Restore 1 dose PO QPM 05/19/22 08/20/22 ascorbic acid (vitamin C) 1,000 mg 1 g PO QAM 05/19/22 08/20/22 tablet (Vitamin C) guaifenesin 1,200 mg tablet, 1,200 mg PO QAM 08/20/22 08/20/22 extended release 12 hr (Mucinex) Previous Rx's Medication Instructions Recorded albuterol sulfate 90 mcg/actuation See Rx Instructions .Route 04/02/21 aerosol inhaler .COMPLEX #18 grams Synthroid 50 mcg tablet 50 mcg PO QAM #90 tabs 06/17/22 (levothyroxine) Results & Data (ED) Vital Signs Vital Signs - 24 hr 08/20/22 17:37 08/20/22 18:54 08/20/22 17:29 Temperature 36.8 C Temperature Source Temporal Artery Scan Pulse Rate 86 75 Pulse Rate [Right Finger] 79 Pulse Rhythm [Right Finger] Regular Pulse Strength [Right Finger] Normal Respiratory Rate 20 18 18 Respiratory Effort / Characteristics Non-Labored Non-Labored Spontaneous Respiratory Depth Normal Normal Respiratory Pattern Regular Blood Pressure 142/86 H 130/65 Blood Pressure [Right Arm] 127/76 Blood Pressure Mean 104 86 Blood Pressure Mean [Right Arm] 93 Pulse Oximetry 98 99 99 Oxygen Delivery Method Room Air Room Air Room Air Sepsis Recent Fever Within 48 Hours No Sepsis New/Unexplained Change in Mental Status N/A Sepsis Action Taken by Nursing No Action Required 08/20/22 21:29 08/20/22 21:53 Temperature Temperature Source Pulse Rate Pulse Rate [Right Finger] 88 78 Pulse Rhythm [Right Finger] Regular Pulse Strength [Right Finger] Normal Respiratory Rate 20 16 Respiratory Effort / Characteristics Non-Labored Non-Labored Spontaneous Respiratory Depth Normal Normal Respiratory Pattern Regular Blood Pressure Blood Pressure [Right Arm] 124/73 124/73 Blood Pressure Mean Blood Pressure Mean [Right Arm] 90 90 Pulse Oximetry 98 97 Oxygen Delivery Method Room Air Room Air Sepsis Recent Fever Within 48 Hours Sepsis New/Unexplained Change in Mental Status Sepsis Action Taken by Nursing Laboratory Data 08/20/22 18:30 08/20/22 18:30 Lab Results 08/20/22 08/20/22 08/20/22 Range/Units 18:30 18:30 18:30 WBC 9.08 (4.8-10.8) K/ul RBC 4.21 (4.20-5.40) M/uL Hgb 13.7 (12.0-16.0) g/dl Hct 39.9 (37.0-47.0) % MCV 94.8 (80.0-100.0) fL MCH 32.5 (25.0-34.0) pg MCHC 34.3 (32.0-36.0) g/dL RDW Std Deviation 42.6 (36.4-46.3) fL RDW Coeff of Ty 12.2 (11.5-14.5) % Plt Count 234 (130-400) K/uL MPV 9.3 L (9.4-12.4) fL Immature Gran % (Auto) 0.2 % Neut % (Auto) 69.6 % Lymph % (Auto) 18.8 % Grainger % (Auto) 7.2 % Eos % (Auto) 3.6 % Baso % (Auto) 0.6 % Neut # (Auto) 6.32 (1.40-6.50) K/uL Lymph # (Auto) 1.71 (1.2-3.4) K/uL Grainger # (Auto) 0.65 H (0.11-0.59) K/uL Eos # (Auto) 0.33 (0-0.50) K/uL Baso # (Auto) 0.05 (0-0.2) K/uL Immature Gran # (Auto) 0.02 (0.01-0.20) K/uL Sodium 140 (136-145) mmol/L Potassium 3.9 (3.5-5.1) mmol/L Chloride 103 (98-107) mmol/L Carbon Dioxide 30 (21-32) mmol/L Anion Gap 7 (3-11) BUN 10 (6-23) mg/dl Creatinine 0.59 L (0.6-1.2) mg/dl Est Cr Clr Drug Dosing 106.1 ml/min Est GFR ( Amer) 116.3 ml/min Est GFR (Non-Af Amer) 100.3 ml/min BUN/Creatinine Ratio 16.9 (10-20) Glucose 74 (70-99(Fasting)) mg/dl Calcium 9.8 (8.5-10.1) mg/dl Total Bilirubin 0.6 (0.2-1.0) mg/dl AST 55 H (13-39) U/L ALT 73 H (7-52) U/L Alkaline Phosphatase 92 (34-104) U/L Total Protein 7.5 (6.0-8.3) gm/dl Albumin 4.5 (3.4-5.0) gm/dl Globulin 3.0 (2.5-4.0) gm/dl Albumin/Globulin Ratio 1.5 (0.9-2) Lipase 32 (11-82) U/L Urine Color Yellow Urine Appearance Clear (Clear) Urine pH 7.0 (4.5-7.5) Ur Specific [place] 1.004 (1.000-1.030) Urine Protein Negative (Negative) Urine Glucose (UA) Negative (Negative) Urine Ketones Negative (Negative) Urine Blood Negative (Negative) Urine Nitrite Negative (Negative) Urine Bilirubin Negative (Negative) Urine Urobilinogen Negative (Negative) Ur Leukocyte Esterase Negative (Negative) SARS-CoV-2, RNA, NAAT (NEGATIVE) 08/20/22 Range/Units 21:34 WBC (4.8-10.8) K/ul RBC (4.20-5.40) M/uL Hgb (12.0-16.0) g/dl Hct (37.0-47.0) % MCV (80.0-100.0) fL MCH (25.0-34.0) pg MCHC (32.0-36.0) g/dL RDW Std Deviation (36.4-46.3) fL RDW Coeff of Ty (11.5-14.5) % Plt Count (130-400) K/uL MPV (9.4-12.4) fL Immature Gran % (Auto) % Neut % (Auto) % Lymph % (Auto) % Grainger % (Auto) % Eos % (Auto) % Baso % (Auto) % Neut # (Auto) (1.40-6.50) K/uL Lymph # (Auto) (1.2-3.4) K/uL Grainger # (Auto) (0.11-0.59) K/uL Eos # (Auto) (0-0.50) K/uL Baso # (Auto) (0-0.2) K/uL Immature Gran # (Auto) (0.01-0.20) K/uL Sodium (136-145) mmol/L Potassium (3.5-5.1) mmol/L Chloride (98-107) mmol/L Carbon Dioxide (21-32) mmol/L Anion Gap (3-11) BUN (6-23) mg/dl Creatinine (0.6-1.2) mg/dl Est Cr Clr Drug Dosing ml/min Est GFR ( Amer) ml/min Est GFR (Non-Af Amer) ml/min BUN/Creatinine Ratio (10-20) Glucose (70-99(Fasting)) mg/dl Calcium (8.5-10.1) mg/dl Total Bilirubin (0.2-1.0) mg/dl AST (13-39) U/L ALT (7-52) U/L Alkaline Phosphatase (34-104) U/L Total Protein (6.0-8.3) gm/dl Albumin (3.4-5.0) gm/dl Globulin (2.5-4.0) gm/dl Albumin/Globulin Ratio (0.9-2) Lipase (11-82) U/L Urine Color Urine Appearance (Clear) Urine pH (4.5-7.5) Ur Specific [place] (1.000-1.030) Urine Protein (Negative) Urine Glucose (UA) (Negative) Urine Ketones (Negative) Urine Blood (Negative) Urine Nitrite (Negative) Urine Bilirubin (Negative) Urine Urobilinogen (Negative) Ur Leukocyte Esterase (Negative) SARS-CoV-2, RNA, NAAT NEGATIVE (NEGATIVE) Administered Medications Discontinued Medications Piperacillin Sod/Tazobactam Sod (Zosyn) 4.5 gm in 120 mls @ 240 mls/hr IV NOW ONE Stop: 08/20/22 21:53 Last Infusion: 08/20/22 21:54 Dose: 0 mls/hr Documented By: DIESEL LOCOMOTIVE ENGINEER Admin: 08/20/22 21:29 Dose: 240 mls/hr Documented By: SERENA Ioversol (Optiray 350 100ml) 85 ml IV ONCE ONE Stop: 08/20/22 20:30 Last Admin: 08/20/22 20:32 Dose: 85 ml Documented By: KAITLIN Imaging Data Radiologist's Impression: Abdomen/Pelvis CT 08/20/22 18:54 Exam(s): CT ABDOMEN + PELVIS With Contrast EXAM: CT Abdomen and Pelvis With Intravenous Contrast CLINICAL HISTORY: Reason for exam: lower abd pain. TECHNIQUE: Axial computed tomography images of the abdomen and pelvis with intravenous contrast. CTDI is 8.95 mGy and DLP is 466.35 mGy-cm. Automated exposure control was utilized for the study. A dose lowering technique was utilized adhering to the principles of ALARA. CONTRAST: Contrast must be dictated COMPARISON: 01/16/2019. FINDINGS: Lung bases: Mild bilateral lower lobe atelectasis. Left lower lobe subpleural calcified granuloma versus small calcified pleural plaque measuring 5.6 mm. Mild atelectasis involving the lingular lobe. ABDOMEN: Liver: Unremarkable. No mass. Gallbladder and bile ducts: Status post cholecystectomy. No ductal dilation. Pancreas: Unremarkable. No mass. No ductal dilation. Spleen: Unremarkable. No splenomegaly. Adrenals: Unremarkable. No mass. Kidneys and ureters: Unremarkable. No solid mass. No hydronephrosis. Stomach and bowel: Diverticulosis throughout the colon more severe through the sigmoid. Thickening of the wall at the posterior sigmoid with inflammation of surrounding fat consistent with diverticulitis. Focal hypodensity with mild peripheral enhancement seen within the wall of the posterior sigmoid in the area of inflammation which could represent a small mural abscess measuring 2.1 cm in maximum dimension. No obstruction. PELVIS: Appendix: Normal appendix. Bladder: Unremarkable. No mass. Reproductive: Unremarkable as visualized. ABDOMEN and PELVIS: Intraperitoneal space: Unremarkable. No free air. No significant fluid collection. Bones/joints: Diffuse osteopenia with mild degenerative disease of the spine. No acute fracture. No dislocation. Soft tissues: Unremarkable. Vasculature: Unremarkable. No abdominal aortic aneurysm. Lymph nodes: Unremarkable. No enlarged lymph nodes. IMPRESSION: 1. Diverticulitis of the posterior sigmoid with possible mural abscess measuring 2.1 cm maximum dimension. No free air. No extraluminal abscess seen. 2. Status post cholecystectomy otherwise unremarkable abdominal viscera. Electronically signed by: Susie Lilly MD 08/20/22 21:20 PM Discharge Plan Visit Data Chief Complaint: Abdominal Pain Stated Complaint: ABDOMINAL PAIN,HX DIVERTICULOSIS ED Provider: Adria De León Discharge Problem: Sigmoid diverticulitis, Lower abdominal pain Patient Disposition: Being Evaluated by Hospitalist Forms Stand Alone Forms: [facility] Prescriptions Prescriptions: No Action albuterol sulfate 90 mcg/actuation HFA aerosol inhaler See Rx Instructions .ROUTE .COMPLEX Qty: 18 1RF Rx Instructions: Inhaled 1-2 puffs PO every 4-6 hrs PRN sob/cough ; levothyroxine [Synthroid] 50 mcg tablet 50 mcg PO QAM Qty: 90 1RF Rx Instructions: TORRES Xiidra 5 % dropperette 1 drp ophthalmic (eye) QPM Rx Instructions: administer approximately 12 hours apart aspirin [Adult Low Dose Aspirin] 81 mg tablet,delayed release (DR/EC) 81 mg PO QPM Cardio FX tablet 1 ea PO BID Immune FX tablet 1 ea PO BID fexofenadine [Twila Allergy] 180 mg tablet 180 mg PO DAILY PRN (Reason: Allergy Symptoms) cholecalciferol (vitamin D3) 2,000 unit capsule 2,000 units PO QAM Qty: 30 Mucinex 1,200 mg Tablet Extended Release 12hr 1,200 mg PO QAM ascorbic acid (vitamin C) [Vitamin C] 1,000 mg Tablet 1 g PO QAM Boswellia 1 tab PO QAM Probiotic 1 cap PO QAM Total Restore 1 dose PO QPM Referrals Referrals: Ayse Oliva DO [Primary Care Provider] -
[2022-08-20 19:15] LABS: Basophils # (auto) 0.05 K/uL (0-0.2); Basophils % (auto) 0.6 %; Eosinophils # (auto) 0.33 K/uL (0-0.50); Eosinophils % (auto) 3.6 %; Hematocrit (blood only) 39.9 % (37.0-47.0); Hemoglobin 13.7 g/dl (12.0-16.0); Immature Granulocytes # (auto) 0.02 K/uL (0.01-0.20); Immature Granulocytes % (auto) 0.2 %; Lymphocytes # (auto) 1.71 K/uL (1.2-3.4); Lymphocytes % (auto) 18.8 %; Mean Corpuscular Hemoglobin 32.5 pg (25.0-34.0); Mean Corpuscular Hgb Conc 34.3 g/dL (32.0-36.0); Mean Corpuscular Volume 94.8 fL (80.0-100.0); Mean Platelet Volume 9.3 fL (9.4-12.4); Monocytes # (auto) 0.65 K/uL (0.11-0.59); Monocytes % (auto) 7.2 %; Neutrophils # (auto) 6.32 K/uL (1.40-6.50); Neutrophils % (auto) 69.6 %; Platelet Count 234 K/uL (130-400); RDW Coefficient of Variation 12.2 % (11.5-14.5); RDW Standard Deviation 42.6 fL (36.4-46.3); Red Blood Count 4.21 M/uL (4.20-5.40); White Blood Count 9.08 K/ul (4.8-10.8)
[2022-08-20 19:18] LABS: Appearance Urine Clear (Clear); Bilirubin Urine Negative (Negative); Blood Urine Negative (Negative); Color Urine Yellow; Glucose Urine UA Negative (Negative); Ketones Urine Negative (Negative); Leukocyte Esterase Urine Negative (Negative); Nitrite Urine Negative (Negative); Protein Urine Negative (Negative); Specific Gravity Urine 1.004 (1.000-1.030); Urobilinogen Urine Negative (Negative)
[2022-08-20 19:43] LABS: Albumin Level 4.5 gm/dl (3.4-5.0); Bilirubin,Total 0.6 mg/dl (0.2-1.0); Calcium 9.8 mg/dl (8.5-10.1); Potassium 3.9 mmol/L (3.5-5.1)
[2022-08-20 19:49] LABS: Albumin Globulin Ratio 1.5 (0.9-2); BUN Creatinine Ratio 16.9 (10-20); Creatinine Clr Calc Pharmacy 106.1 ml/min; Est GFR (African American) 116.3 ml/min; Est GFR (Non-African American) 100.3 ml/min; Total Protein 7.5 gm/dl (6.0-8.3)
[2022-08-20] MEDS ORDERED: OPTIRAY 350 100ml IV ONE (20:29)
--- NOTE | 2022-08-20 21:21 | CT Scan Report ---
Exam(s): CT ABDOMEN + PELVIS With Contrast EXAM: CT Abdomen and Pelvis With Intravenous Contrast CLINICAL HISTORY: Reason for exam: lower abd pain. TECHNIQUE: Axial computed tomography images of the abdomen and pelvis with intravenous contrast. CTDI is 8.95 mGy and DLP is 466.35 mGy-cm. Automated exposure control was utilized for the study. A dose lowering technique was utilized adhering to the principles of ALARA. CONTRAST: Contrast must be dictated COMPARISON: 01/16/2019. FINDINGS: Lung bases: Mild bilateral lower lobe atelectasis. Left lower lobe subpleural calcified granuloma versus small calcified pleural plaque measuring 5.6 mm. Mild atelectasis involving the lingular lobe. ABDOMEN: Liver: Unremarkable. No mass. Gallbladder and bile ducts: Status post cholecystectomy. No ductal dilation. Pancreas: Unremarkable. No mass. No ductal dilation. Spleen: Unremarkable. No splenomegaly. Adrenals: Unremarkable. No mass. Kidneys and ureters: Unremarkable. No solid mass. No hydronephrosis. Stomach and bowel: Diverticulosis throughout the colon more severe through the sigmoid. Thickening of the wall at the posterior sigmoid with inflammation of surrounding fat consistent with diverticulitis. Focal hypodensity with mild peripheral enhancement seen within the wall of the posterior sigmoid in the area of inflammation which could represent a small mural abscess measuring 2.1 cm in maximum dimension. No obstruction. PELVIS: Appendix: Normal appendix. Bladder: Unremarkable. No mass. Reproductive: Unremarkable as visualized. ABDOMEN and PELVIS: Intraperitoneal space: Unremarkable. No free air. No significant fluid collection. Bones/joints: Diffuse osteopenia with mild degenerative disease of the spine. No acute fracture. No dislocation. Soft tissues: Unremarkable. Vasculature: Unremarkable. No abdominal aortic aneurysm. Lymph nodes: Unremarkable. No enlarged lymph nodes. IMPRESSION: 1. Diverticulitis of the posterior sigmoid with possible mural abscess measuring 2.1 cm maximum dimension. No free air. No extraluminal abscess seen. 2. Status post cholecystectomy otherwise unremarkable abdominal viscera. Electronically signed by: Susie Lilly MD 08/20/22 21:20 PM
[2022-08-20] MEDS ORDERED: PIPERACILLIN/TAZOBACTAM 4.5 GM/120 ML BAG IV ONE (21:24)
--- NOTE | 2022-08-20 22:16 | History & Physical Report ---
Patient seen and examined. I agree with the history and physical and the plan as outlined in the resident's note. Date of Service August 20, 2022 Assessment & Plan (1) Sigmoid diverticulitis: (2) Asthma: (3) Esophageal reflux: (4) DVT (deep venous thrombosis): (5) Factor V Leiden mutation: (6) Hypothyroidism: Plan Sandhya is a 61 year old female with history of asthma, GERD, JARRETT, Vitamin D deficiency, DDD, prior DVT, rosacea, hypothyroidism, hypercholesterolemia, and Factor V leiden (81 mg aspirin each night) who presents for evaluation of lower abdominal pain, she is being admitted for management of acute diverticulitis. Acute Diverticulitis - CT evidence of diverticulitis of the posterior sigmoid with possible mural abscess measuring 2.1 cm maximum dimension. No free air. No extraluminal abscess seen. - CBC unremarkable, vitals wnl - IV Antibiotics - continue empiric Zosyn - IV Hydration - Lactated Ringers 125 ml/hr - IV Pain Medication - Tylenol 1000 mg TID - Complete bowel rest - NPO - Monitor clinical improvement 2-3 days - Advance diet as tolerated after clinical improvement - General surgery consultation placed d/t evidence of abscess, appreciate recommendations - Complete 10-14 day antibiotic course Transaminitis (mild) - No RUQ pain - Likely in the setting of acute inflammation/stress - Continue to monitor Hypothyroidism - Continue home Synthroid Factor 5 Leiden/Prior DVT - Hold home aspirin - Start DVT Ppx per protocol (Lovenox) Hypercholesterolemia - Not on statin GERD - No current medical management Asthma - Well controlled at baseline - Albuterol PRN FEN: Bowel Rest - NPO Code status: Full Code DVT ppx: Lovenox Isolation: None Dispo:Med/Surg History of Present Illness Chief Complaint: Abdominal Pain Primary Care Provider: Ayse Oliva DO Sandhya is a 61 year old female with history of asthma, GERD, JARRETT, Vitamin D deficiency, DDD, prior DVT, rosacea, hypothyroidism, hypercholesterolemia, and F actor V leiden (81 mg aspirin each night) who presents for evaluation of lower abdominal pain, she is being admitted for management of acute diverticulitis. Patient notes that last Wednesday she started having LLQ pain. She notes that she has had recent urinary tract infections and had also eaten more dairy than usual the week prior, so she thought she was experiencing an early UTI or the result o f excess dairy. But over the last week her symptoms continued to progress. Today she was experiencing fevers/chills as well as generalized fatigue, this, ontop of the worsening abdominal pain ultimately prompted her presentation to the ER. She notes that she was constipation about a week ago and took some Sennekot and that her stools have been normal since. She deneis any blood or mucous in her stools. SHe notes that she has had a poor appetite, but has been trying to increase her water intake. She denies nausea, emesis, chest pain, dyspnea, or lightheadedness. She is experiencing a mild headache but no vision changes. Patient takes Aspirin 81 mg daily for Factor 5 Leiden, she has previously had a DVT. She typically avoids ibuprofen and only takes Tylenol d/t a previous reaction to Ibuprofen, she requests to avoid narcotic pain medications, and requested that pain management be started with Tylenol only. Patient's asthma is well controlled, only requiring rescue inhaler 1-2 times per year. ER Course: Zosyn Allergies Allergy/AdvReac Type Severity Reaction Status Date / Time ibuprofen Allergy Intermediate Hives Verified 08/20/22 20:36 Sulfa (Sulfonamide Allergy Unknown CAN'T Verified 08/20/22 20:36 Antibiotics) REMEMBER Quinolones AdvReac Intermediate FELT LIKE Verified 08/20/22 20:36 Home Medications Medication Instructions Recorded Confirmed Type cholecalciferol (vitamin D3) 50 2,000 units PO QAM #30 caps 01/16/19 08/20/22 History mcg (2,000 unit) capsule Cardio FX 1 ea PO BID 11/28/20 08/20/22 History Immune FX 1 ea PO BID 11/28/20 08/20/22 History aspirin 81 mg tablet,delayed 81 mg PO QPM 11/28/20 08/20/22 History release (Adult Low Dose Aspirin) fexofenadine 180 mg tablet 180 mg PO DAILY PRN Allergy 02/24/21 08/20/22 History (Twila Allergy) Symptoms albuterol sulfate 90 mcg/actuation See Rx Instructions .Route 04/02/21 08/20/22 Rx aerosol inhaler .COMPLEX #18 grams lifitegrast 5 % eye drops in a 1 drp ophthalmic (eye) QPM 08/25/21 08/20/22 History dropperette (Xiidra) Boswellia 1 tab PO QAM 05/19/22 08/20/22 History Probiotic 1 cap PO QAM 05/19/22 08/20/22 History Total Restore 1 dose PO QPM 05/19/22 08/20/22 History ascorbic acid (vitamin C) 1,000 mg 1 g PO QAM 05/19/22 08/20/22 History tablet (Vitamin C) Synthroid 50 mcg tablet 50 mcg PO QAM #90 tabs 06/17/22 08/20/22 Rx (levothyroxine) guaifenesin 1,200 mg tablet, 1,200 mg PO QAM 08/20/22 08/20/22 History extended release 12 hr (Mucinex) Past Med/Surg History Medical History Diverticulosis Factor V Leiden mutation GERD (gastroesophageal reflux disease) Hiatal hernia History of diverticulitis History of DVT (deep vein thrombosis) History of pancreatitis History of pulmonary embolism Hypercholesterolemia Hypothyroidism IBS (irritable bowel syndrome) Sleep apnea TMJ (temporomandibular joint disorder) Surgical History History of section History of colonoscopy History of esophagogastroduodenoscopy (EGD) History of laparoscopic cholecystectomy History of laparoscopy History of loop electrical excision procedure (LEEP) History of total abdominal hysterectomy Family History Mother Family history of deafness or hearing loss Acute myocardial infarction Hypercholesteremia Allergic rhinitis Stroke Asthma Sister History of deep venous thrombosis Local recurrence of carcinoma of breast Scleroderma Hypercholesteremia Breast cancer Allergic rhinitis Hypertension Asthma PONV (postoperative nausea and vomiting) Brother Liver cancer Diabetes Family history of deafness or hearing loss Type C viral hepatitis History of emphysema Hypertension Grandmother (Maternal) Stroke Father Hypercholesteremia Family/Other Sinus disorder Denies family history of Bleeding disorder Social History Smoking Status: Never smoker Second Hand Exposure: Yes (as a child); Hx Alcohol Use: Yes Alcohol Intake Frequency: Monthly or Less Hx Substance Use: No Preferred Language: Russian Communication Ability: Effective Visual Impairment: No Limitations Hearing Ability: Normal Park Interpreter Required: No Beliefs That Will Affect Care: None marital status: Current Living Situation: Spouse current occupational status: employed current occupation: financial services rep/accountant controller Feels Safe at Home: Yes Childhood Exposure to Second-Hand Smoke: Yes Diet Comment: optivia caffeine: Yes during the past year weight has: decreased > 10 lbs Dental Care, Regularly: Yes Physical Activity Frequency: Daily Seatbelt Use: always Sunscreen Use: Yes Assistive Devices: Glasses Review of Systems Review of Systems: As per HPI Physical Exam Physical Exam: Gen: NAD, alert, interactive HEENT: Supple, no LAD, no thyromegaly, no JVD Resp:Non-labored, no wheezing/rhonchi/rales, CTAB CV:RRR, normal S1/S2, no M/R/G Abd: Soft, non-distended, LLQ TTP, hypoactive bowels, no masses, no rebound or guarding Extr: 2+ dp bilaterally, no edema Skin: No rashes lesions or erythema Results & Data Results & Data ([facility]) Vital Signs (Past 12 Hours) Vital Signs Temp Pulse Pulse Resp BP BP Pulse Ox 08/20/22 21:53 78 16 124/73 97 08/20/22 21:29 88 20 124/73 98 08/20/22 17:29 75 18 130/65 99 08/20/22 18:54 79 18 127/76 99 08/20/22 17:37 36.8 C 86 20 142/86 H 98 O2 Del Method 08/20/22 21:53 Room Air 08/20/22 21:29 Room Air 08/20/22 17:29 Room Air 08/20/22 18:54 Room Air 08/20/22 17:37 Room Air Diagnostic Findings Abdomen/Pelvis CT 08/20/22 18:54 Exam(s): CT ABDOMEN + PELVIS With Contrast EXAM: CT Abdomen and Pelvis With Intravenous Contrast CLINICAL HISTORY: Reason for exam: lower abd pain. TECHNIQUE: Axial computed tomography images of the abdomen and pelvis with intravenous contrast. CTDI is 8.95 mGy and DLP is 466.35 mGy-cm. Automated exposure control was utilized for the study. A dose lowering technique was utilized adhering to the principles of ALARA. CONTRAST: Contrast must be dictated COMPARISON: 01/16/2019. FINDINGS: Lung bases: Mild bilateral lower lobe atelectasis. Left lower lobe subpleural calcified granuloma versus small calcified pleural plaque measuring 5.6 mm. Mild atelectasis involving the lingular lobe. ABDOMEN: Liver: Unremarkable. No mass. Gallbladder and bile ducts: Status post cholecystectomy. No ductal dilation. Pancreas: Unremarkable. No mass. No ductal dilation. Spleen: Unremarkable. No splenomegaly. Adrenals: Unremarkable. No mass. Kidneys and ureters: Unremarkable. No solid mass. No hydronephrosis. Stomach and bowel: Diverticulosis throughout the colon more severe through the sigmoid. Thickening of the wall at the posterior sigmoid with inflammation of surrounding fat consistent with diverticulitis. Focal hypodensity with mild peripheral enhancement seen within the wall of the posterior sigmoid in the area of inflammation which could represent a small mural abscess measuring 2.1 cm in maximum dimension. No obstruction. PELVIS: Appendix: Normal appendix. Bladder: Unremarkable. No mass. Reproductive: Unremarkable as visualized. ABDOMEN and PELVIS: Intraperitoneal space: Unremarkable. No free air. No significant fluid collection. Bones/joints: Diffuse osteopenia with mild degenerative disease of the spine. No acute fracture. No dislocation. Soft tissues: Unremarkable. Vasculature: Unremarkable. No abdominal aortic aneurysm. Lymph nodes: Unremarkable. No enlarged lymph nodes. IMPRESSION: 1. Diverticulitis of the posterior sigmoid with possible mural abscess measuring 2.1 cm maximum dimension. No free air. No extraluminal abscess seen. 2. Status post cholecystectomy otherwise unremarkable abdominal viscera. Electronically signed by: Susie Lilly MD 08/20/22 21:20 PM Resident Activity Tracking Resident Involvement: Resident Care Provided Care Provided: Adult [facility] Medicine
[2022-08-21] MEDS ORDERED: ALBUTEROL HFA 8 GM INHALER INH PRN (00:12)
[2022-08-21] MEDS ORDERED: LACTATED RINGER'S 1,000 ML IV SCH (00:12)
[2022-08-21] MEDS: ACETAMINOPHEN 500 MG TAB PO PRN ×2 (00:20→08:10)
--- NOTE | 2022-08-21 01:19 | Surgery Consultation ---
Date of Consultation August 21, 2022 Assessment & Plan (1) Sigmoid diverticulitis: pt is a 61 year-old female who was admitted to hospital for acute diverticulitis with small abscess. normal WBC, no fever, IMP: sigmoid colon diverticulitis with small abscess plan, no emergent surgery indication now, conservative treatment, NPO, IV fluid, iv antibiotic, control pain, repeat labs in morning , will F/U, pt agreed with the plan, I answered all questions, History of Present Illness Reason for Consultation: diverticulitis with abscess Requesting Physician: Mode Del Toro MD Attending Physician: Mode Del Toro MD History of Present Illness Chief Complaint: Abdominal Pain Primary Care Provider: Ayse Oliva DO Sandhya is a 61 year old female with history of asthma, GERD, JARRETT, Vitamin D deficiency, DDD, prior DVT, rosacea, hypothyroidism, hypercholesterolemia, and Factor V leiden (81 mg aspirin each night) who presents for evaluation of lower abdominal pain, she is being admitted for management of acute diverticulitis. Patient notes that last Wednesday she started having LLQ pain. She notes that she has had recent urinary tract infections and had also eaten more dairy than usual the week prior, so she thought she was experiencing an early UTI or the result of excess dairy. But over the last week her symptoms continued to progress. Today she was experiencing fevers/chills as well as generalized fatigue, this, ontop of the worsening abdominal pain ultimately prompted her presentation to the ER. She notes that she was constipation about a week ago and took some Sennekot and that her stools have been normal since. She deneis any blood or mucous in her stools. SHe notes that she has had a poor appetite, but has been trying to increase her water intake. She denies nausea, emesis, chest pain, dyspnea, or lightheadedness. She is experiencing a mild headache but no vision changes. Patient takes Aspirin 81 mg daily for Factor 5 Leiden, she has previously had a DVT. She typically avoids ibuprofen and only takes Tylenol d/t a previous reaction to Ibuprofen, she requests to avoid narcotic pain medications, and requested that pain management be started with Tylenol only. Patient's asthma is well controlled, only requiring rescue inhaler 1-2 times per year. I ( Madhav Aguayo MD ) got a call for consult diverticulitis with abscess, I reviewed pt's H/P, labs and CT scan with pt. ER Course: Zosyn Allergies Allergy/AdvReac Type Severity Reaction Status Date / Time ibuprofen Allergy Intermediate Hives Verified 08/20/22 20:36 Sulfa (Sulfonamide Allergy Unknown CAN'T Verified 08/20/22 20:36 Antibiotics) REMEMBER Quinolones AdvReac Intermediate FELT LIKE Verified 08/20/22 20:36 Home Medications Medication Instructions Recorded Confirmed Type cholecalciferol (vitamin D3) 50 2,000 units PO QAM #30 caps 01/16/19 08/20/22 History mcg (2,000 unit) capsule Cardio FX 1 ea PO BID 11/28/20 08/20/22 History Immune FX 1 ea PO BID 11/28/20 08/20/22 History aspirin 81 mg tablet,delayed 81 mg PO QPM 11/28/20 08/20/22 History release (Adult Low Dose Aspirin) fexofenadine 180 mg tablet 180 mg PO DAILY PRN Allergy 02/24/21 08/20/22 History (Twila Allergy) Symptoms albuterol sulfate 90 mcg/actuation See Rx Instructions .Route 04/02/21 08/20/22 Rx aerosol inhaler .COMPLEX #18 grams lifitegrast 5 % eye drops in a 1 drp ophthalmic (eye) QPM 08/25/21 08/20/22 History dropperette (Xiidra) [place]wellia 1 tab PO QAM 05/19/22 08/20/22 History Probiotic 1 cap PO QAM 05/19/22 08/20/22 History Total Restore 1 dose PO QPM 05/19/22 08/20/22 History ascorbic acid (vitamin C) 1,000 mg 1 g PO QAM 05/19/22 08/20/22 History tablet (Vitamin C) Synthroid 50 mcg tablet 50 mcg PO QAM #90 tabs 06/17/22 08/20/22 Rx (levothyroxine) guaifenesin 1,200 mg tablet, 1,200 mg PO QAM 08/20/22 08/20/22 History extended release 12 hr (Mucinex) Past Med/Surg History Medical History Diverticulosis Factor V Leiden mutation GERD (gastroesophageal reflux disease) Hiatal hernia History of diverticulitis History of DVT (deep vein thrombosis) History of pancreatitis History of pulmonary embolism Hypercholesterolemia Hypothyroidism IBS (irritable bowel syndrome) Sleep apnea TMJ (temporomandibular joint disorder) Surgical History History of section History of colonoscopy History of esophagogastroduodenoscopy (EGD) History of laparoscopic cholecystectomy History of laparoscopy History of loop electrical excision procedure (LEEP) History of total abdominal hysterectomy Family History Mother Family history of deafness or hearing loss Acute myocardial infarction Hypercholesteremia Allergic rhinitis Stroke AsthmaSister History of deep venous thrombosis Local recurrence of carcinoma of breast Scleroderma Hypercholesteremia Breast cancer Allergic rhinitis Hypertension Asthma PONV (postoperative nausea and vomiting)Brother Liver cancer Diabetes Family history of deafness or hearing loss Type C viral hepatitis History of emphysema HypertensionGrandmother (Maternal) StrokeFather HypercholesteremiaFamily/Other Sinus disorderDenies family history of Bleeding disorder Social History Smoking Status: Never smoker Second Hand Exposure: Yes (as a child); Hx Alcohol Use: Yes Alcohol Intake Frequency: Monthly or Less Hx Substance Use: No Preferred Language: Central African Communication Ability: Effective Visual Impairment: No Limitations Hearing Ability: Normal Chain Mender Required: No Beliefs That Will Affect Care: None marital status: Current Living Situation: Spouse current occupational status: employed current occupation: financial controller/hedge fund accountant Feels Safe at Home: Yes Childhood Exposure to Second-Hand Smoke: Yes Diet Comment: optivia caffeine: Yes during the past year weight has: decreased > 10 lbs Dental Care, Regularly: Yes Physical Activity Frequency: Daily Seatbelt Use: always Sunscreen Use: Yes Assistive Devices: Glasses Review of Systems Review of Systems: As per HPI Allergies Allergy/AdvReac Type Severity Reaction Status Date / Time ibuprofen Allergy Intermediate Hives Verified 08/20/22 20:36 Sulfa (Sulfonamide Allergy Unknown CAN'T Verified 08/20/22 20:36 Antibiotics) REMEMBER Quinolones AdvReac Intermediate FELT LIKE Verified 08/20/22 20:36 Home Medications Medication Instructions Recorded Confirmed Type cholecalciferol (vitamin D3) 50 2,000 units PO QAM #30 caps 01/16/19 08/20/22 History mcg (2,000 unit) capsule Cardio FX 1 ea PO BID 11/28/20 08/20/22 History Immune FX 1 ea PO BID 11/28/20 08/20/22 History aspirin 81 mg tablet,delayed 81 mg PO QPM 11/28/20 08/20/22 History release (Adult Low Dose Aspirin) fexofenadine 180 mg tablet 180 mg PO DAILY PRN Allergy 02/24/21 08/20/22 History (Twila Allergy) Symptoms albuterol sulfate 90 mcg/actuation See Rx Instructions .Route 04/02/21 08/20/22 Rx aerosol inhaler .COMPLEX #18 grams lifitegrast 5 % eye drops in a 1 drp ophthalmic (eye) QPM 08/25/21 08/20/22 History dropperette (Xiidra) [place]wellia 1 tab PO QAM 05/19/22 08/20/22 History Probiotic 1 cap PO QAM 05/19/22 08/20/22 History Total Restore 1 dose PO QPM 05/19/22 08/20/22 History ascorbic acid (vitamin C) 1,000 mg 1 g PO QAM 05/19/22 08/20/22 History tablet (Vitamin C) Synthroid 50 mcg tablet 50 mcg PO QAM #90 tabs 06/17/22 08/20/22 Rx (levothyroxine) guaifenesin 1,200 mg tablet, 1,200 mg PO QAM 08/20/22 08/20/22 History extended release 12 hr (Mucinex) Patient History Medical History Diverticulosis Factor V Leiden mutation GERD (gastroesophageal reflux disease) Hiatal hernia History of diverticulitis History of DVT (deep vein thrombosis) History of pancreatitis History of pulmonary embolism Hypercholesterolemia Hypothyroidism IBS (irritable bowel syndrome) Sleep apnea TMJ (temporomandibular joint disorder) Surgical History History of section History of colonoscopy History of esophagogastroduodenoscopy (EGD) History of laparoscopic cholecystectomy History of laparoscopy History of loop electrical excision procedure (LEEP) History of total abdominal hysterectomy Family History Mother Family history of deafness or hearing loss Acute myocardial infarction Hypercholesteremia Allergic rhinitis Stroke Asthma Sister History of deep venous thrombosis Local recurrence of carcinoma of breast Scleroderma Hypercholesteremia Breast cancer Allergic rhinitis Hypertension Asthma PONV (postoperative nausea and vomiting) Brother Liver cancer Diabetes Family history of deafness or hearing loss Type C viral hepatitis History of emphysema Hypertension Grandmother (Maternal) Stroke Father Hypercholesteremia Family/Other Sinus disorder Denies family history of Bleeding disorder Social History Smoking Status: Never smoker Second Hand Exposure: Yes (as a child); Hx Alcohol Use: Yes Alcohol type: beer and wine Alcohol Intake Frequency: Monthly or Less Hx Substance Use: No Preferred Language: [place] African Communication Ability: Effective Visual Impairment: No Limitations Hearing Ability: Normal Chain Mender Required: No Beliefs That Will Affect Care: None marital status: Current Living Situation: Spouse current occupational status: employed current occupation: financial controller/hedge fund accountant Feels Safe at Home: Yes Safety Concerns: Feels Safe At This Time Childhood Exposure to Second-Hand Smoke: Yes Diet Comment: optivia caffeine: Yes during the past year weight has: decreased > 10 lbs Dental Care, Regularly: Yes Physical Activity Frequency: Daily Seatbelt Use: always Sunscreen Use: Yes Assistive Devices: None Physical Exam Constitutional: WD/WN, vitals as above no distress Eyes: PERRL, conjunctivae normal, anicteric sclerae Neck: trachea midline, no thyromegaly Respiratory: normal respiratory effort, lungs clear to auscultation Cardiovascular: RRR, no murmur, no edema Gastrointestinal (Abdomen): soft, mild tenderness at low abdomen, no rebound pain, no distend, BS +, Musculoskeletal: no cyanosis or clubbing, extremities motor strength 5/5 Neurologic: patellar DTR's 2+ bilat, sensation intact Psychiatric: A+Ox3, euthymic affect Results & Data ([facility]) Vital Signs (Past 12 Hours) Vital Signs Temp Pulse Pulse Resp BP BP Pulse Ox 08/21/22 00:32 36.8 C 73 16 108/78 96 08/21/22 00:00 78 20 124/62 97 08/20/22 21:53 78 16 124/73 97 08/20/22 21:29 88 20 124/73 98 08/20/22 17:29 75 18 130/65 99 08/20/22 18:54 79 18 127/76 99 08/20/22 17:37 36.8 C 86 20 142/86 H 98 O2 Del Method 08/21/22 00:32 Room Air 08/21/22 00:00 Room Air 08/20/22 21:53 Room Air 08/20/22 21:29 Room Air 08/20/22 17:29 Room Air 08/20/22 18:54 Room Air 08/20/22 17:37 Room Air Laboratory Results Abnormal lab results 08/20/22 08/20/22 Range/Units 18:30 18:30 MPV 9.3 L (9.4-12.4) fL Izard # (Auto) 0.65 H (0.11-0.59) K/uL Creatinine 0.59 L (0.6-1.2) mg/dl AST 55 H (13-39) U/L ALT 73 H (7-52) U/L Diagnostic Findings ADDENDUM: 08/20/22 21:30 Call Doctor Regarding Other, called Dr. De León on 08/20 21:30 (-05:00) Electronically signed by: Susie Lilly MD Electronically signed by: Susie Lilly MD 08/20/22 21:22 PM ADDENDUM END ADDENDUM ADDENDUM: Exam(s): CT ABDOMEN + PELVIS With Contrast Electronically signed by: Susie Lilly MD 08/20/22 21:22 PM ADDENDUM END Exam(s): CT ABDOMEN + PELVIS With Contrast EXAM: CT Abdomen and Pelvis With Intravenous Contrast CLINICAL HISTORY: Reason for exam: lower abd pain. TECHNIQUE: Axial computed tomography images of the abdomen and pelvis with intravenous contrast. CTDI is 8.95 mGy and DLP is 466.35 mGy-cm. Automated exposure control was utilized for the study. A dose lowering technique was utilized adhering to the principles of ALARA. CONTRAST: Contrast must be dictated COMPARISON: 01/16/2019. FINDINGS: Lung bases: Mild bilateral lower lobe atelectasis. Left lower lobe subpleural calcified granuloma versus small calcified pleural plaque measuring 5.6 mm. Mild atelectasis involving the lingular lobe. ABDOMEN: Liver: Unremarkable. No mass. Gallbladder and bile ducts: Status post cholecystectomy. No ductal dilation. Pancreas: Unremarkable. No mass. No ductal dilation. Spleen: Unremarkable. No splenomegaly. Adrenals: Unremarkable. No mass. Kidneys and ureters: Unremarkable. No solid mass. No hydronephrosis. Stomach and bowel: Diverticulosis throughout the colon more severe through the sigmoid. Thickening of the wall at the posterior sigmoid with inflammation of surrounding fat consistent with diverticulitis. Focal hypodensity with mild peripheral enhancement seen within the wall of the posterior sigmoid in the area of inflammation which could represent a small mural abscess measuring 2.1 cm in maximum dimension. No obstruction. PELVIS: Appendix: Normal appendix. Bladder: Unremarkable. No mass. Reproductive: Unremarkable as visualized. ABDOMEN and PELVIS: Intraperitoneal space: Unremarkable. No free air. No significant fluid collection. Bones/joints: Diffuse osteopenia with mild degenerative disease of the spine. No acute fracture. No dislocation. Soft tissues: Unremarkable. Vasculature: Unremarkable. No abdominal aortic aneurysm. Lymph nodes: Unremarkable. No enlarged lymph nodes. IMPRESSION: 1. Diverticulitis of the posterior sigmoid with possible mural abscess measuring 2.1 cm maximum dimension. No free air. No extraluminal abscess seen. 2. Status post cholecystectomy otherwise unremarkable abdominal viscera. Electronically signed by: Susie Lilly MD 08/20/22 21:20 PM
[2022-08-21] MEDS: PIPERACILLIN/TAZOBACTAM 3.375 GM in DEXTROSE 5% 100 ML IV SCH ×3 (03:49→20:21)
[2022-08-21] MEDS: LEVOTHYROXINE SODIUM 50 MCG TABLET PO SCH (06:24)
--- NOTE | 2022-08-21 06:36 | Hospitalist Progress Note ---
Date of Service August 21, 2022 Assessment & Plan (1) Sigmoid diverticulitis: Plan: Sandhya is a 61 year-old female who was admitted to hospital for abdominal pain secondary to acute diverticulitis with 2 cm abscess. Normal WBC, no fever, -CT evidence of diverticulitis of the posterior sigmoid with possible mural abscess measuring 2.1 cm maximum dimension. No free air. No extraluminal abscess seen. - CBC unremarkable, vitals wnl - IV Antibiotics: continue empiric Zosyn - IV Hydration: Lactated Ringers 125 ml/hr - IV Pain Medication: Tylenol 1000 mg TID - Complete bowel rest: NPO - Monitor clinical improvement 2-3 days - Advance diet as tolerated after clinical improvement - General surgery recommended conservative management at this time, will follow recommendations - Complete 10-14 day antibiotic course (2) Factor V Leiden mutation: Plan: -History of DVT -Stop home baby aspirin, move to Lovenox for DVT prophylaxis (3) Hypothyroidism: Plan: -continue home levothyroxine (4) Asthma: Plan: -albuterol PRN Admission and Anticipated Discharge Date Admission Date: August 20, 2022 Subjective Sandhya is a 61 year old female with history of asthma, GERD, prior DVT, hypothyroidism, hypercholesterolemia, and Factor V Leiden who presents for evaluation of lower abdominal pain. 3/10: Today she is feeling a little bit better. Lower abdominal pain/discomfort is a little better, 5/10. Is worse with bowel movements and eating. Had some chills yesterday but these seem have improved. She is more fatigued. Last bowel movement was yesterday, described as loose. Is voiding well. Hoping pain will improve with bowel rest. Review of Systems Review of Systems: All systems reviewed & are unremarkable except as noted in HPI & below Physical Exam Physical Exam: General: Alert and oriented to person, place, and time. In no acute distress. Pulmonary: Lungs clear to auscultation. No respiratory distress. Cardiac: Normal rate and rhythm. No murmurs, rubs, or gallops. Abdominal: Normoactive Bowel sounds. LLQ tender to palpation. Extremities: No edema bilaterally. Neurological: No focal deficits. Results & Data Results & Data ([facility]) Vital Signs (Past 12 Hours) Vital Signs Temp Pulse Pulse Resp BP BP Pulse Ox 08/21/22 00:32 36.8 C 73 16 108/78 96 08/21/22 00:00 78 20 124/62 97 08/20/22 21:53 78 16 124/73 97 08/20/22 21:29 88 20 124/73 98 08/20/22 18:54 79 18 127/76 99 O2 Del Method 08/21/22 00:32 Room Air 08/21/22 00:00 Room Air 08/20/22 21:53 Room Air 08/20/22 21:29 Room Air 08/20/22 18:54 Room Air Resident Activity Tracking Resident Involvement: Resident Care Provided Care Provided: Adult Hospital Medicine
[2022-08-21] MEDS: ENOXAPARIN INJ 40 MG/0.4 ML SYR SQ SCH (08:11)
[2022-08-21] MEDS: SODIUM CHLORIDE 0.9% 1000ML 1,000 ML IV SCH ×2 (08:36→17:52)
[2022-08-21] MEDS ORDERED: ACETAMINOPHEN 500 MG TAB PO SCH (09:00)
[2022-08-21 11:03] LABS: Basophils # (auto) 0.03 K/uL (0-0.2); Basophils % (auto) 0.5 %; Eosinophils % (auto) 4.8 %; Hematocrit (blood only) 34.9 % (37.0-47.0); Hemoglobin 12.1 g/dl (12.0-16.0); Immature Granulocytes # (auto) 0.01 K/uL (0.01-0.20); Immature Granulocytes % (auto) 0.2 %; Lymphocytes # (auto) 1.22 K/uL (1.2-3.4); Lymphocytes % (auto) 19.4 %; Mean Corpuscular Hgb Conc 34.7 g/dL (32.0-36.0); Mean Corpuscular Volume 92.3 fL (80.0-100.0); Mean Platelet Volume 9.2 fL (9.4-12.4); Monocytes # (auto) 0.68 K/uL (0.11-0.59); Monocytes % (auto) 10.8 %; Neutrophils # (auto) 4.04 K/uL (1.40-6.50); Neutrophils % (auto) 64.3 %; Platelet Count 189 K/uL (130-400); RDW Standard Deviation 41.1 fL (36.4-46.3); Red Blood Count 3.78 M/uL (4.20-5.40); White Blood Count 6.28 K/ul (4.8-10.8)
--- NOTE | 2022-08-21 11:07 | Post Operative Brief Note ---
Immediate Post Op Note v1 Date of Surgery August 21, 2022 Pre & Post Diagnosis this is wrong note, please discard Surgeon Madhav Aguayo MD
[2022-08-21 11:29] LABS: Albumin Level 3.5 gm/dl (3.4-5.0); Bilirubin,Total 0.8 mg/dl (0.2-1.0); Calcium 8.8 mg/dl (8.5-10.1); Potassium 3.9 mmol/L (3.5-5.1)
[2022-08-21 11:40] LABS: Albumin Globulin Ratio 1.5 (0.9-2); BUN Creatinine Ratio 15.8 (10-20); Est GFR (African American) 117.6 ml/min; Est GFR (Non-African American) 101.5 ml/min; Globulin 2.4 gm/dl (2.5-4.0); Total Protein 5.9 gm/dl (6.0-8.3)
--- NOTE | 2022-08-21 13:59 | Hospitalist Progress Note ---
Date of Service August 21, 2022 Assessment & Plan (1) Sigmoid diverticulitis: Plan: Sandhya is a 61 year-old female who was admitted to hospital for abdominal pain. -CT evidence of diverticulitis of the posterior sigmoid with possible mural abscess measuring 2.1 cm maximum dimension. No free air. No extraluminal abscess seen. - CBC unremarkable, vitals wnl - IV Zosyn - IV Tylenol 1000 mg TID - NPO - Monitor clinically - Advance diet as tolerated - General surgery consulted, conservative management at this time - Complete 10-14 day antibiotic course (2) Factor V Leiden mutation: Plan: -History of DVT, not on chronic anticoagulation (3) Hypothyroidism: Plan: -continue home levothyroxine (4) Asthma: Plan: -albuterol PRN Plan DVT prophylaxis: Lovenox Diet: NPO, IV fluids IV Fluids: Lactated ringers 125 ml/hr Dispo: Med/Surg Code status: Full Admission and Anticipated Discharge Date Admission Date: August 20, 2022 Supervising Physician Co-Signing Physician Notes Medical Student Supervision Note: I was personally present during medical student patient encounter and independently interviewed and examined the patient and verified the landa history and physical, reviewed labs and image studies, discussed the case with Keyla Tadeo and agree with the findings and care plan. 61 y/o here with lower abdominal pain due to acute diverticulitis with possible small mural abscess o/e- AAOx3; heart regular, no resp distress, abdomen with minimal left lower quadrant tenderness a/p - acute diverticulitis with small abscess- IV abx, NPO, IVF, pain control. Surgery consulted - continue med management. Lovenox for DVT proph Subjective Sandhya is a 61 year old female with history of asthma, GERD, prior DVT, hypothyroidism, hypercholesterolemia, and Factor V Leiden who presents for evaluation of lower abdominal pain. 3/10: Today she is feeling a little bit better. Lower abdominal pain/discomfort is a little better, 5/10. Is worse with bowel movements and eating. Had some chills yesterday but these seem have improved. She is more fatigued. Last bowel movement was yesterday, described as loose. Is voiding well. Hoping pain will improve with bowel rest. Review of Systems Review of Systems: All systems reviewed & are unremarkable except as noted in HPI & below Physical Exam Physical Exam: General: Alert and oriented to person, place, and time. In no acute distress. Pulmonary: Lungs clear to auscultation. No respiratory distress. Cardiac: Normal rate and rhythm. No murmurs, rubs, or gallops. Abdominal: Normoactive Bowel sounds. LLQ tender to palpation. Extremities: No edema bilaterally. Neurological: No focal deficits. Results & Data Results & Data ([facility]) Vital Signs (Past 12 Hours) Vital Signs Temp Pulse Resp BP Pulse Ox O2 Del Method 08/21/22 07:54 36.5 C 68 16 110/68 97 Room Air
[2022-08-21] MEDS ORDERED: oxyCODONE HCL IR 5 MG TAB (IMMEDIATE RELEASE) PO PRN (16:17)
[2022-08-21] MEDS: ACETAMINOPHEN 500 MG TAB PO SCH (16:30)
[2022-08-22] MEDS: ACETAMINOPHEN 500 MG TAB PO SCH ×3 (00:24→16:53)
[2022-08-22] MEDS: SODIUM CHLORIDE 0.9% 1000ML 1,000 ML IV SCH ×2 (00:32→10:48)
[2022-08-22] MEDS: PIPERACILLIN/TAZOBACTAM 3.375 GM in DEXTROSE 5% 100 ML IV SCH ×3 (03:36→20:26)
[2022-08-22] MEDS: LEVOTHYROXINE SODIUM 50 MCG TABLET PO SCH (05:36)
[2022-08-22 06:37] LABS: Basophils # (auto) 0.04 K/uL (0-0.2); Basophils % (auto) 0.6 %; Eosinophils # (auto) 0.27 K/uL (0-0.50); Eosinophils % (auto) 4.4 %; Hematocrit (blood only) 33.7 % (37.0-47.0); Hemoglobin 11.6 g/dl (12.0-16.0); Immature Granulocytes # (auto) 0.01 K/uL (0.01-0.20); Immature Granulocytes % (auto) 0.2 %; Lymphocytes # (auto) 1.28 K/uL (1.2-3.4); Lymphocytes % (auto) 20.8 %; Mean Corpuscular Hemoglobin 31.9 pg (25.0-34.0); Mean Corpuscular Hgb Conc 34.4 g/dL (32.0-36.0); Mean Corpuscular Volume 92.6 fL (80.0-100.0); Mean Platelet Volume 9.5 fL (9.4-12.4); Monocytes % (auto) 11.4 %; Neutrophils # (auto) 3.86 K/uL (1.40-6.50); Neutrophils % (auto) 62.6 %; Platelet Count 191 K/uL (130-400); RDW Coefficient of Variation 11.8 % (11.5-14.5); RDW Standard Deviation 40.2 fL (36.4-46.3); Red Blood Count 3.64 M/uL (4.20-5.40); White Blood Count 6.16 K/ul (4.8-10.8)
[2022-08-22 06:57] LABS: Albumin Globulin Ratio 1.5 (0.9-2); Albumin Level 3.4 gm/dl (3.4-5.0); BUN Creatinine Ratio 16.4 (10-20); Bilirubin,Total 0.9 mg/dl (0.2-1.0); Calcium 8.3 mg/dl (8.5-10.1); Est GFR (Non-African American) 102.7 ml/min; Globulin 2.2 gm/dl (2.5-4.0); Magnesium 1.8 mg/dl (1.7-2.4); Potassium 3.5 mmol/L (3.5-5.1); Total Protein 5.6 gm/dl (6.0-8.3)
[2022-08-22] MEDS: ENOXAPARIN INJ 40 MG/0.4 ML SYR SQ SCH (08:51)
--- NOTE | 2022-08-22 11:03 | Surgery Progress Note ---
Date of Service August 22, 2022 Assessment & Plan (1) Sigmoid diverticulitis: Plan: Continue clear liquids Continue IV antibiotics Try to ambulate in the hallway Admission and Anticipated Discharge Date Admission Date: August 20, 2022 Subjective Patient's vital signs are stable She did have some clear liquids and felt a little tiny bit of cramping We will continue same today Physical Exam Physical Exam: No significant distention Results & Data ([facility]) Vital Signs (Past 12 Hours) Vital Signs Temp Pulse Resp BP Pulse Ox O2 Del Method 08/22/22 07:14 36.7 C 61 16 122/72 Room Air 08/21/22 23:09 36.6 C 60 16 116/62 98 Room Air PG Care Time/CCT Total # of Minutes Spent Total Time Spent with Patient: Total time spent is greater than 50% in coordination of care (as documented) at patient's floor/unit and/or counseling patient: Coding Level of Care Code 93329 SUB INP/OBS CARE 07/08MIN Diagnoses Sigmoid diverticulitis K57.32
--- NOTE | 2022-08-22 15:10 | Hospitalist Progress Note ---
Date of Service August 22, 2022 Assessment & Plan (1) Sigmoid diverticulitis: Plan: Sandhya is a 61 yo female with PMHx of hypothyroidism, HLD, asthma, JARRETT, and Factor V Leiden admitted at [facility] on 08/20/22 due to acute sigmoid diverticulitis. Sigmoid Diverticulitis - CT abd/pelvis 08/20: diverticulitis of the posterior sigmoid with possible mural abscess measuring 2.1 cm maximum dimension - CBC is unremarkable and patient is hemodynamically stable - General surgery consulted. Appreciate their recommendations -- will continue with conservative management - Continue IV abx therapy for now; plan to transition to po abx therapy w/ Augmentin (documented intolerance to quinolones) to complete 10-14 days of abx therapy - IV Tylenol 1000mg q8h - Continue clear liquid diet; plan to attempt to advance diet tomorrow - Encourage frequent ambulation in hallway - Repeat CBC and BMP qAM Chronic Medical Problems Asthma: stable, continue albuterol prn Factor V Leiden mutation: history of provoked DVT, completed 6+ month of Xarelto in 2019; not on chronic anticoagulation at present time Hypothyroidism: stable, continue home Synthroid Hypercholesterolemia: monitored by PCP, currently managing with lifestyle mod ifications and w/o pharmacotherapy FENGI: clear liquid diet, IVF with NSS at 100 cc/hr DVT ppx: Lovenox Dispo: continue hospitalization on med/surg Code status: Full code (2) Factor V Leiden mutation: (3) Hypothyroidism: (4) Obstructive sleep apnea of adult: (5) Asthma: (6) Hypercholesterolemia: Admission and Anticipated Discharge Date Admission Date: August 20, 2022 Supervising Physician Co-Signing Physician Notes Resident Physician Supervision Note: I independently interviewed and examined the patient and verified the landa history and physical, reviewed labs and image studies and agree with resident findings and care plan. Subjective Patient seen and evaluated at bedside this morning. Reports tolerating clear liquid diet po well last night w/o abd pain or nausea. However, this morning, patient did have some abdominal cramping have breakfast (still clear liquids). Also reports some nausea. She has not had any vomiting. No other concerns this morning. Review of Systems Review of Systems: See HPI Physical Exam Physical Exam: GENERAL: No acute distress. Well developed and well nourished. Vital signs reviewed as above. EYES: EOMI. Anicteric sclerae. HENT: Moist mucous membranes. RESPIRATORY: Clear to auscultation bilaterally. No wheezing, rales, or rhonchi. CARDIOVASCULAR: Regular rate and rhythm. No murmurs. No JVD. ABDOMEN: Soft. No significant tenderness to palpation. No abdominal distension. + bowel sounds. SKIN: Warm, dry. NEUROLOGIC: A/O x3. Normal speech. No focal neurological deficits. Ambulating w/o difficulty. PSYCHIATRIC: Cooperative. Appropriate mood and affect. Results & Data Results & Data ([facility]) Vital Signs (Past 12 Hours) Vital Signs Temp Pulse Resp BP Pulse Ox O2 Del Method 08/22/22 14:03 36.7 C 71 16 118/71 95 Room Air 08/22/22 07:14 36.7 C 61 16 122/72 Room Air Laboratory Results 08/22/22 08/22/22 Range/Units 05:19 05:19 WBC 6.16 (4.8-10.8) K/ul RBC 3.64 L (4.20-5.40) M/uL Hgb 11.6 L (12.0-16.0) g/dl Hct 33.7 L (37.0-47.0) % MCV 92.6 (80.0-100.0) fL MCH 31.9 (25.0-34.0) pg MCHC 34.4 (32.0-36.0) g/dL RDW Std Deviation 40.2 (36.4-46.3) fL RDW Coeff of Ty 11.8 (11.5-14.5) % Plt Count 191 (130-400) K/uL MPV 9.5 (9.4-12.4) fL Immature Gran % (Auto) 0.2 % Neut % (Auto) 62.6 % Lymph % (Auto) 20.8 % [place] % (Auto) 11.4 % Eos % (Auto) 4.4 % Baso % (Auto) 0.6 % Neut # (Auto) 3.86 (1.40-6.50) K/uL Lymph # (Auto) 1.28 (1.2-3.4) K/uL [place] # (Auto) 0.70 H (0.11-0.59) K/uL Eos # (Auto) 0.27 (0-0.50) K/uL Baso # (Auto) 0.04 (0-0.2) K/uL Immature Gran # (Auto) 0.01 (0.01-0.20) K/uL Sodium 141 (136-145) mmol/L Potassium 3.5 (3.5-5.1) mmol/L Chloride 109 H (98-107) mmol/L Carbon Dioxide 26 (21-32) mmol/L Anion Gap 6 (3-11) BUN 9 (6-23) mg/dl Creatinine 0.55 L (0.6-1.2) mg/dl Est Cr Clr Drug Dosing 112.0 ml/min Est GFR ( Amer) 119.0 ml/min Est GFR (Non-Af Amer) 102.7 ml/min BUN/Creatinine Ratio 16.4 (10-20) Glucose 77 (70-99(Fasting)) mg/dl Calcium 8.3 L (8.5-10.1) mg/dl Magnesium 1.8 (1.7-2.4) mg/dl Total Bilirubin 0.9 (0.2-1.0) mg/dl AST 58 H (13-39) U/L ALT 73 H (7-52) U/L Alkaline Phosphatase 99 (34-104) U/L Total Protein 5.6 L (6.0-8.3) gm/dl Albumin 3.4 (3.4-5.0) gm/dl Globulin 2.2 L (2.5-4.0) gm/dl Albumin/Globulin Ratio 1.5 (0.9-2) Resident Activity Tracking Resident Involvement: Resident Care Provided Care Provided: Adult Hospital Medicine
[2022-08-22] MEDS ORDERED: ONDANSETRON INJ 2 MG/ML 2 ML VIAL IV PRN (17:05)
[2022-08-23] MEDS: ACETAMINOPHEN 500 MG TAB PO SCH ×4 (00:58→23:47)
[2022-08-23] MEDS: SODIUM CHLORIDE 0.9% 1000ML 1,000 ML IV SCH ×2 (00:58→10:45)
[2022-08-23] MEDS: PIPERACILLIN/TAZOBACTAM 3.375 GM in DEXTROSE 5% 100 ML IV SCH ×3 (05:20→19:59)
[2022-08-23] MEDS: LEVOTHYROXINE SODIUM 50 MCG TABLET PO SCH (05:20)
[2022-08-23 05:53] LABS: Basophils # (auto) 0.04 K/uL (0-0.2); Basophils % (auto) 0.8 %; Eosinophils % (auto) 6.4 %; Hematocrit (blood only) 30.3 % (37.0-47.0); Hemoglobin 10.7 g/dl (12.0-16.0); Lymphocytes # (auto) 1.37 K/uL (1.2-3.4); Mean Corpuscular Hemoglobin 32.5 pg (25.0-34.0); Mean Corpuscular Hgb Conc 35.3 g/dL (32.0-36.0); Mean Corpuscular Volume 92.1 fL (80.0-100.0); Mean Platelet Volume 9.5 fL (9.4-12.4); Monocytes # (auto) 0.57 K/uL (0.11-0.59); Monocytes % (auto) 12.1 %; Neutrophils # (auto) 2.44 K/uL (1.40-6.50); Neutrophils % (auto) 51.7 %; Platelet Count 176 K/uL (130-400); RDW Coefficient of Variation 11.8 % (11.5-14.5); RDW Standard Deviation 39.9 fL (36.4-46.3); Red Blood Count 3.29 M/uL (4.20-5.40); White Blood Count 4.72 K/ul (4.8-10.8)
[2022-08-23 06:10] LABS: Albumin Globulin Ratio 1.6 (0.9-2); Albumin Level 3.1 gm/dl (3.4-5.0); BUN Creatinine Ratio 12.1 (10-20); Bilirubin,Total 0.6 mg/dl (0.2-1.0); Creatinine Clr Calc Pharmacy 106.2 ml/min; Est GFR (African American) 116.9 ml/min; Est GFR (Non-African American) 100.9 ml/min; Potassium 3.6 mmol/L (3.5-5.1); Total Protein 5.1 gm/dl (6.0-8.3)
--- NOTE | 2022-08-23 07:02 | Hospitalist Progress Note ---
Date of Service August 23, 2022 Assessment & Plan (1) Sigmoid diverticulitis: Plan: Sandhya is a 61 yo female with PMHx of hypothyroidism, HLD, asthma, JARRETT, and Factor V Leiden admitted at [facility] on 08/20/22 due to acute sigmoid diverticulitis. Sigmoid Diverticulitis - CT abd/pelvis 08/20: diverticulitis of the posterior sigmoid with possible mural abscess measuring 2.1 cm maximum dimension - CBC is unremarkable and patient is hemodynamically stable - General surgery consulted. Appreciate their recommendations -- will continue with conservative management - Continue IV abx therapy for now; plan to transition to po abx therapy w/ Augmentin (documented intolerance to quinolones) to complete 10-14 days of abx therapy - Per surgery recommendations, patient likely would benefit from 1-2 more days of IV abx - IV Tylenol 1000mg q8h - Will advance to full liquid diet today - Encourage frequent ambulation in hallway - Repeat CBC and BMP qAM Chronic Medical Problems Asthma: stable, continue albuterol prn Factor V Leiden mutation: history of provoked DVT, completed 6+ month of Xarelto in 2019; not on chronic anticoagulation at present time Hypothyroidism: stable, continue home Synthroid Hypercholesterolemia: monitored by PCP, currently managing with lifestyle modifications and w/o pharmacotherapy FENGI: full liquid diet DVT ppx: Lovenox Dispo: continue hospitalization on med/surg Code status: Full code (2) Factor V Leiden mutation: (3) Hypothyroidism: (4) Obstructive sleep apnea of adult: (5) Asthma: (6) Hypercholesterolemia: Admission and Anticipated Discharge Date Admission Date: August 20, 2022 Supervising Physician Co-Signing Physician Notes Resident Physician Supervision Note: I independently interviewed and examined the patient and verified the landa history and physical, reviewed labs and image studies and agree with resident findings and care plan. Subjective Patient seen and examined at bedside this morning. She is sitting at edge of bed, getting ready to eat breakfast. Patient notes some persistent generalized abdominal cramping but states that she does feel slightly improved from yesterday. She did have one dose of Zofran yesterday early evening for nausea w/ benefit. Patient denies vomiting or diarrhea; no fevers or chills; no CP or SOB. Review of Systems Review of Systems: See HPI Physical Exam Physical Exam: GENERAL: No acute distress. Well developed and well nourished. Vital signs reviewed as above. EYES: EOMI. Anicteric sclerae. HENT: Moist mucous membranes. RESPIRATORY: Clear to auscultation bilaterally. No wheezing, rales, or rhonchi. CARDIOVASCULAR: Regular rate and rhythm. No murmurs. No JVD. ABDOMEN: Soft. No significant tenderness to palpation. No abdominal distension. + bowel sounds. SKIN: Warm, dry. NEUROLOGIC: A/O x3. Normal speech. No focal neurological deficits. PSYCHIATRIC: Cooperative. Appropriate mood and affect. Results & Data Results & Data ([facility]) Vital Signs (Past 12 Hours) Vital Signs Temp Pulse Resp BP Pulse Ox O2 Del Method 08/22/22 20:24 36.7 C 69 16 112/71 96 Room Air Laboratory Results 08/23/22 08/23/22 Range/Units 05:17 05:17 WBC 4.72 L (4.8-10.8) K/ul RBC 3.29 L (4.20-5.40) M/uL Hgb 10.7 L (12.0-16.0) g/dl Hct 30.3 L (37.0-47.0) % MCV 92.1 (80.0-100.0) fL MCH 32.5 (25.0-34.0) pg MCHC 35.3 (32.0-36.0) g/dL RDW Std Deviation 39.9 (36.4-46.3) fL RDW Coeff of Ty 11.8 (11.5-14.5) % Plt Count 176 (130-400) K/uL MPV 9.5 (9.4-12.4) fL Immature Gran % (Auto) 0.0 % Neut % (Auto) 51.7 % Lymph % (Auto) 29.0 % [place] % (Auto) 12.1 % Eos % (Auto) 6.4 % Baso % (Auto) 0.8 % Neut # (Auto) 2.44 (1.40-6.50) K/uL Lymph # (Auto) 1.37 (1.2-3.4) K/uL [place] # (Auto) 0.57 (0.11-0.59) K/uL Eos # (Auto) 0.30 (0-0.50) K/uL Baso # (Auto) 0.04 (0-0.2) K/uL Immature Gran # (Auto) 0.00 L (0.01-0.20) K/uL Sodium 142 (136-145) mmol/L Potassium 3.6 (3.5-5.1) mmol/L Chloride 112 H (98-107) mmol/L Carbon Dioxide 27 (21-32) mmol/L Anion Gap 3 (3-11) BUN 7 (6-23) mg/dl Creatinine 0.58 L (0.6-1.2) mg/dl Est Cr Clr Drug Dosing 106.2 ml/min Est GFR ( Amer) 116.9 ml/min Est GFR (Non-Af Amer) 100.9 ml/min BUN/Creatinine Ratio 12.1 (10-20) Glucose 71 (70-99(Fasting)) mg/dl Calcium 8.0 L (8.5-10.1) mg/dl Total Bilirubin 0.6 (0.2-1.0) mg/dl AST 75 H (13-39) U/L ALT 99 H (7-52) U/L Alkaline Phosphatase 109 H (34-104) U/L Total Protein 5.1 L (6.0-8.3) gm/dl Albumin 3.1 L (3.4-5.0) gm/dl Globulin 2.0 L (2.5-4.0) gm/dl Albumin/Globulin Ratio 1.6 (0.9-2) Resident Activity Tracking Resident Involvement: Resident Care Provided Care Provided: Adult Hospital Medicine
[2022-08-23] MEDS: ENOXAPARIN INJ 40 MG/0.4 ML SYR SQ SCH (07:58)
--- NOTE | 2022-08-23 09:26 | Post Operative Brief Note ---
PG Immediate Post Op with CF Date of Surgery August 23, 2022 Pre & Post Diagnosis Cholangitis Chronic cholecystitis I identified the patient and participated in the time-out.: Yes Procedure See dictation Surgeon Keshav Gore MD, FACS [employer] Estimated Blood Loss 5 Findings Consistent with Post-Op Diagnosis Patient had chronic adhesions consistent with chronic cholecystitis Stones in the gallbladder likely causing some obstruction
--- NOTE | 2022-08-23 09:40 | Post Operative Brief Note ---
PG Immediate Post Op with CF Date of Surgery August 23, 2022 Pre & Post Diagnosis Prior op note on wrong patient I identified the patient and participated in the time-out.: No Procedure Noneprior op note on wrong patient Surgeon Keshav Gore MD, FACS Incoming [employer] Nurses Estimated Blood Loss 5 Findings See Below (Wrong patient) Prior op note on wrong patient
--- NOTE | 2022-08-23 10:00 | Surgery Progress Note ---
Date of Service August 23, 2022 Assessment & Plan (1) Sigmoid diverticulitis: Plan: Patient day 3 and is improving daily Likely would benefit from 1-2 more days of IV antibiotics and advancing diet We will give her full liquids today Admission and Anticipated Discharge Date Admission Date: August 20, 2022 Subjective Patient sitting on the edge of her bed eating her clear liquid breakfast and feeling better than yesterday She looks much better than yesterday Review of Systems Review of Systems: All systems reviewed & are unremarkable except as noted in HPI & below Physical Exam Physical Exam: No significant distention Awake and alert no distress with normal looking affect Results & Data ([facility]) Vital Signs (Past 12 Hours) Vital Signs Temp Pulse Resp BP Pulse Ox O2 Del Method 08/23/22 08:00 Room Air 08/23/22 07:34 36.8 C 55 L 16 111/76 96 Room Air PG Care Time/CCT Total # of Minutes Spent Total Time Spent with Patient: Total time spent is greater than 50% in coordination of care (as documented) at patient's floor/unit and/or counseling patient: Coding Level of Care Code 83902 SUB INP/OBS CARE 07/08MIN Diagnoses Sigmoid diverticulitis K57.32
[2022-08-24] MEDS: PIPERACILLIN/TAZOBACTAM 3.375 GM in DEXTROSE 5% 100 ML IV SCH ×2 (03:58→11:43)
[2022-08-24] MEDS: LEVOTHYROXINE SODIUM 50 MCG TABLET PO SCH (06:18)
--- NOTE | 2022-08-24 07:12 | Hospitalist Progress Note ---
Date of Service August 24, 2022 Assessment & Plan (1) Sigmoid diverticulitis: Plan: Sandhya is a 61 yo female with PMHx of hypothyroidism, HLD, asthma, JARRETT, and Factor V Leiden admitted at [facility] on 08/20/22 due to acute sigmoid diverticulitis. Sigmoid Diverticulitis - CT abd/pelvis 08/20: diverticulitis of the posterior sigmoid with possible mural abscess measuring 2.1 cm maximum dimension - CBC is unremarkable and patient is hemodynamically stable - General surgery consulted. Appreciate their recommendations -- will continue with conservative management - Continue IV abx therapy for now; plan to transition to po abx therapy w/ Augmentin (documented intolerance to quinolones) to complete 10-14 days of abx therapy - Per surgery recommendations, patient likely would benefit from 1-2 more days of IV abx - IV Tylenol 1000mg q8h - Will advance to full liquid diet today - Encourage frequent ambulation in hallway - Repeat CBC and BMP qAM Chronic Medical Problems Asthma: stable, continue albuterol prn Factor V Leiden mutation: history of provoked DVT, completed 6+ month of Xarelto in 2019; not on chronic anticoagulation at present time Hypothyroidism: stable, continue home Synthroid Hypercholesterolemia: monitored by PCP, currently managing with lifestyle modifications and w/o pharmacotherapy FENGI: full liquid diet DVT ppx: Lovenox Dispo: continue hospitalization on med/surg Code status: Full code (2) Factor V Leiden mutation: (3) Hypothyroidism: (4) Obstructive sleep apnea of adult: (5) Asthma: (6) Hypercholesterolemia: Admission and Anticipated Discharge Date Admission Date: August 20, 2022 Subjective No acute events overnight. Review of Systems Review of Systems: All systems reviewed & are unremarkable except as noted in HPI & below Results & Data Results & Data ([facility]) Vital Signs (Past 12 Hours) Vital Signs Temp Pulse Resp BP Pulse Ox O2 Del Method 08/23/22 20:34 36.4 C L 69 16 121/77 97 Room Air
[2022-08-24 07:13] LABS: Basophils # (auto) 0.05 K/uL (0-0.2); Basophils % (auto) 1.7 %; Eosinophils # (auto) 0.23 K/uL (0-0.50); Eosinophils % (auto) 7.8 %; Hematocrit (blood only) 33.2 % (37.0-47.0); Hemoglobin 11.5 g/dl (12.0-16.0); Immature Granulocytes # (auto) 0.01 K/uL (0.01-0.20); Immature Granulocytes % (auto) 0.3 %; Lymphocytes # (auto) 0.97 K/uL (1.2-3.4); Mean Corpuscular Hgb Conc 34.6 g/dL (32.0-36.0); Mean Corpuscular Volume 92.5 fL (80.0-100.0); Mean Platelet Volume 9.5 fL (9.4-12.4); Monocytes % (auto) 10.2 %; Neutrophils # (auto) 1.38 K/uL (1.40-6.50); Platelet Count 200 K/uL (130-400); RDW Coefficient of Variation 11.8 % (11.5-14.5); Red Blood Count 3.59 M/uL (4.20-5.40); White Blood Count 2.94 K/ul (4.8-10.8)
[2022-08-24 07:27] LABS: Albumin Globulin Ratio 1.5 (0.9-2); Albumin Level 3.5 gm/dl (3.4-5.0); BUN Creatinine Ratio 10.3 (10-20); Bilirubin,Total 0.8 mg/dl (0.2-1.0); Calcium 8.6 mg/dl (8.5-10.1); Creatinine Clr Calc Pharmacy 106.2 ml/min; Est GFR (African American) 116.9 ml/min; Est GFR (Non-African American) 100.9 ml/min; Globulin 2.3 gm/dl (2.5-4.0); Potassium 3.9 mmol/L (3.5-5.1); Total Protein 5.8 gm/dl (6.0-8.3)
[2022-08-24] MEDS: ACETAMINOPHEN 500 MG TAB PO SCH ×2 (08:00→16:42)
[2022-08-24] MEDS: ENOXAPARIN INJ 40 MG/0.4 ML SYR SQ SCH (08:00)
--- NOTE | 2022-08-24 14:22 | Surgery Progress Note ---
Date of Service August 24, 2022 Assessment & Plan (1) Sigmoid diverticulitis: Plan: doing well afebrile, no leukocytosis tolerated advancement of diet no abdominal pain Plan: Okay from surgical standpoint for discharge recommend total of 14 days of antibiotics (IV and oral) given mural abscess just had colonoscopy in May which was normal per patient, likely does not need repeat low fiber diet for 2-4 weeks and then high fiber diet Discussed with Dr. Aguayo who agrees with above. Admission and Anticipated Discharge Date Admission Date: August 20, 2022 Subjective feeling better today no abdominal pain just some cramping discomfort at times no n,v tolerated soft diet for breakfast and lunch liquid bowel movements x 2 today Physical Exam Constitutional: WD/WN, vitals as above no acute distress and not ill appearing Neck: normal visual inspection and trachea midline Respiratory: normal respiratory effort; no respiratory distress Gastrointestinal (Abdomen): Inspection/Auscultation: abdomen normal to inspection and + hypoactive bowel sounds; abdomen not distended and + abnormal bowel sounds Percussion/Palpation: abdomen soft; abdomen nontender, no guarding and abdomen not rigid Skin: no rashes, warm and dry Psychiatric: A+Ox3, euthymic affect Results & Data ([facility]) Vital Signs (Past 12 Hours) Vital Signs Temp Pulse Resp BP Pulse Ox O2 Del Method 08/24/22 07:46 36.4 C L 55 L 16 124/78 97 Room Air Laboratory Results 08/24/22 08/24/22 Range/Units 06:28 06:28 WBC 2.94 L (4.8-10.8) K/ul RBC 3.59 L (4.20-5.40) M/uL Hgb 11.5 L (12.0-16.0) g/dl Hct 33.2 L (37.0-47.0) % MCV 92.5 (80.0-100.0) fL MCH 32.0 (25.0-34.0) pg MCHC 34.6 (32.0-36.0) g/dL RDW Std Deviation 40.0 (36.4-46.3) fL RDW Coeff of Ty 11.8 (11.5-14.5) % Plt Count 200 (130-400) K/uL MPV 9.5 (9.4-12.4) fL Immature Gran % (Auto) 0.3 % Neut % (Auto) 47.0 % Lymph % (Auto) 33.0 % [place] % (Auto) 10.2 % Eos % (Auto) 7.8 % Baso % (Auto) 1.7 % Neut # (Auto) 1.38 L (1.40-6.50) K/uL Lymph # (Auto) 0.97 L (1.2-3.4) K/uL [place] # (Auto) 0.30 (0.11-0.59) K/uL Eos # (Auto) 0.23 (0-0.50) K/uL Baso # (Auto) 0.05 (0-0.2) K/uL Immature Gran # (Auto) 0.01 (0.01-0.20) K/uL Sodium 143 (136-145) mmol/L Potassium 3.9 (3.5-5.1) mmol/L Chloride 110 H (98-107) mmol/L Carbon Dioxide 27 (21-32) mmol/L Anion Gap 6 (3-11) BUN 6 (6-23) mg/dl Creatinine 0.58 L (0.6-1.2) mg/dl Est Cr Clr Drug Dosing 106.2 ml/min Est GFR ( Amer) 116.9 ml/min Est GFR (Non-Af Amer) 100.9 ml/min BUN/Creatinine Ratio 10.3 (10-20) Glucose 75 (70-99(Fasting)) mg/dl Calcium 8.6 (8.5-10.1) mg/dl Total Bilirubin 0.8 (0.2-1.0) mg/dl AST 78 H (13-39) U/L ALT 121 H (7-52) U/L Alkaline Phosphatase 145 H (34-104) U/L Total Protein 5.8 L (6.0-8.3) gm/dl Albumin 3.5 (3.4-5.0) gm/dl Globulin 2.3 L (2.5-4.0) gm/dl Albumin/Globulin Ratio 1.5 (0.9-2)
--- NOTE | 2022-08-24 16:45 | Discharge Summary ---
Date of Service August 24, 2022 Admission HPI Per Admitting Provider Sandhya is a 61 year old female with history of asthma, GERD, JARRETT, Vitamin D deficiency, DDD, prior DVT, rosacea, hypothyroidism, hypercholesterolemia, and Factor V leiden (81 mg aspirin each night) who presents for evaluation of lower abdominal pain, she is being admitted for management of acute diverticulitis. Patient notes that last Wednesday she started having LLQ pain. She notes that she has had recent urinary tract infections and had also eaten more dairy than usual the week prior, so she thought she was experiencing an early UTI or the result of excess dairy. But over the last week her symptoms continued to progress. Today she was experiencing fevers/chills as well as generalized fatigue, this, ontop of the worsening abdominal pain ultimately prompted her presentation to the ER. She notes that she was constipation about a week ago and took some [place] and that her stools have been normal since. She deneis any blood or mucous in her stools. SHe notes that she has had a poor appetite, but has been trying to increase her water intake. She denies nausea, emesis, chest pain, dyspnea, or lightheadedness. She is experiencing a mild headache but no vision changes. Patient takes Aspirin 81 mg daily for Factor 5 Leiden, she has previously had a DVT. She typically avoids ibuprofen and only takes Tylenol d/t a previous reaction to Ibuprofen, she requests to avoid narcotic pain medications, and requested that pain management be started with Tylenol only. Patient's asthma is well controlled, only requiring rescue inhaler 1-2 times per year. ER Course: Zosyn Principal Diagnosis Sigmoid diverticulitis Discharge Exam General: No acute distress HEENT: PERRLA. Normal conjunctiva, anicteric sclera. Oropharynx normal. Respiratory: Normal respiratory effort, CTABL. Cardiovascular: RRR without murmurs, gallops, or rubs. No edema. GI: Soft abdomen with normal bowel sounds heard on auscultation. Nontender x4 quadrants Neuro: Alert and oriented x3. Discharge Data Allergies Allergy/AdvReac Type Severity Reaction Status Date / Time ibuprofen Allergy Intermediate Hives Verified 08/20/22 20:36 Sulfa (Sulfonamide Allergy Unknown CAN'T Verified 08/20/22 20:36 Antibiotics) REMEMBER Quinolones AdvReac Intermediate FELT LIKE Verified 08/20/22 20:36 lactose AdvReac Unknown Nausea Verified 08/23/22 10:03 Consultations 08/20/22 21:45 ED Decision to Admit Stat 08/20/22 23:22 Consult General Surgery Stat Ordered Studies 08/20/22 18:54 CT abd pelvis IV con only Stat Hospital Course (1) Sigmoid diverticulitis: 61 yo female with PMHx of hypothyroidism, HLD, asthma, JARRETT, and Factor V Leiden admitted at [facility] on 08/20/22 due to acute sigmoid diverticulitis. Sigmoid Diverticulitis - CT abd/pelvis 08/20: diverticulitis of the posterior sigmoid with possible mural abscess measuring 2.1 cm maximum dimension - CBC is unremarkable and patient is hemodynamically stable - General surgery consulted. Appreciate their recommendations -- will continue with conservative management - Transition from IV to p.o. antibiotic therapy: Augmentin 875-125 mg twice daily x7 days. Total IV/p.o. antibiotic course = 10 days. - Advanced to full liquid diet, then regular diet, which patient tolerated without complication. - Encourage frequent ambulation Chronic Medical Problems Asthma: stable, continue albuterol prn Factor V Leiden mutation: history of provoked DVT, completed 6+ month of Xarelto in 2019; not on chronic anticoagulation at present time Hypothyroidism: stable, continue home Synthroid Hypercholesterolemia: monitored by PCP, currently managing with lifestyle modifications and w/o pharmacotherapy (2) Factor V Leiden mutation: (3) Hypothyroidism: (4) Obstructive sleep apnea of adult: (5) Asthma: (6) Hypercholesterolemia: Total Time Total Time Spent Total Time Spent (In Minutes): <30 Discharge Plan Discharge Items Patient Disposition: Home - Self-Care Reason For Visit: ABDOMINAL PAIN Discharge Diagnosis: Acute sigmoid diverticulitis Activity: Per Instructions section Non-emergency contact: Primary Care Provider and Surgeon Call non-emergency contact if: you have any medication questions, your pain is not controlled, your pain is worsening and your temperature is above 101 Follow-up/Referrals: Ayse Oliva DO [Primary Care Provider] - 09/02/22 10:30 am Diet: Regular Addtl Attending Provider Instructions: Dear Sandhya, You were brought to the hospital for sudden abdominal pain. You were evaluated, determined to have an episode of diverticulitis, or an inflammation of a segment of your colon with an abscess, and admitted to the hospital for further management. We consulted with our surgical specialists, who determined that you did not require surgical intervention. You were then placed on IV antibiotics until you symptomatically improved. We gradually advance your diet until you are able to tolerate a regular diet. Once you reached this milestone, the [facility] team felt that you were ready to be safely discharged home. As part of your ongoing treatment, we are sending the following antibiotic to your pharmacy: * Augmentin, or amoxicillin-clavulanate 875-125 mg. Please take 1 tablet of Augmentin twice daily, starting tonight, for 7 days. You should follow-up with your primary care physician, Dr. Ayse Oliva in 1 week. It is important that you make this appointment so that you can be evaluated to determine whether you will require additional antibiotic treatment. If you are unable to make this appointment, or you need to reschedule, you should contact her office at [phone]. In the meantime, if you experience abdominal pain similar to what brought you into the hospital initially, contact your primary care physician immediately. If you are unable to reach them, do not hesitate to go to the emergency room if your symptoms continue to worsen. It has been a pleasure to take care of you here at [facility]. If you have any questions or concerns regarding your stay, you may contact us at [phone]. Pending Studies at Discharge: No Stand-Alone Forms: My [facility], Smoking Cessation Medications and DC Order Prescriptions: New amoxicillin-pot clavulanate 875-125 mg tablet 1 tab PO BID 7 Days Qty: 14 0RF Continued albuterol sulfate 90 mcg/actuation HFA aerosol inhaler See Rx Instructions .ROUTE .COMPLEX Qty: 18 1RF Rx Instructions: Inhaled 1-2 puffs PO every 4-6 hrs PRN sob/cough ; levothyroxine [Synthroid] 50 mcg tablet 50 mcg PO QAM Qty: 90 1RF Rx Instructions: TORRES Xiidra 5 % dropperette 1 drp ophthalmic (eye) QPM Rx Instructions: administer approximately 12 hours apart aspirin [Adult Low Dose Aspirin] 81 mg tablet,delayed release (DR/EC) 81 mg PO QPM Cardio FX tablet 1 ea PO BID Immune FX tablet 1 ea PO BID fexofenadine [Twila Allergy] 180 mg tablet 180 mg PO DAILY PRN (Reason: Allergy Symptoms) cholecalciferol (vitamin D3) 2,000 unit capsule 2,000 units PO QAM Qty: 30 Mucinex 1,200 mg Tablet Extended Release 12hr 1,200 mg PO QAM ascorbic acid (vitamin C) [Vitamin C] 1,000 mg Tablet 1 g PO QAM Boswellia 1 tab PO QAM Probiotic 1 cap PO QAM Total Restore 1 dose PO QPM Discharge Orders: Discharge Order (Routine); Ordered 08/24/22 Ordered By: Reyes Carlton/Other Patient Handouts: Diverticulosis and Diverticulitis Admission Data Admit Date/Time: 08/20/22 22:59 Attending Provider: Robert Jesus Admit Provider: Ethan Hayes Primary Care Provider: Ayse Oliva Other Providers: Keshav Gore ; Eddy Cantor ; Rufino Fine ; Tremayne Baird ; Cedrick Nelson ; Ligia Mckeon ; Flash Trevino ; Jaison Herring ; Chloe Rodríguez ; Mode Del Toro Other Interventions: Discharge Summary Assessment (RN) Last Done: 08/24/22 17:00 Supervising Physician Co-Signing Physician Notes I personally examined the patient and verified all landa points of history and exam, discussed case, and agree with decision making with Dr Dobson Feeling better and would very much like to go home. Abdominal pain more or less resolved. Eating okay. Vitals noted, in general she is awake and alert pleasant no distress. HEENT normocephalic atraumatic mucous membranes moist. Breathing unlabored no accessory muscle use good effort. Skin shows no rashes no pallor or icterus. Neuro without focal deficits. Abdomen is soft nondistended very mild left lower quadrant tenderness to very deep palpation no guarding rebound or rigidity. Diverticulitis with small abscessclinically improving nicely. Okay for discharge from both primary and surgical perspective. Course of antibiotics. Close outpatient follow-up. Resident Activity Tracking Resident Involvement: Resident Care Provided Care Provided: Adult Hospital Medicine
--- NOTE | 2022-08-24 18:34 | Billing Data ---
Date of Service August 24, 2022 Coding Level of Care Code 69113 IN/OBS DISCH 30 MIN/LESS
== END 2022-08-24 17:18 | disposition home or self-care (01) | DRG 392 ==
LOC: ED 17:29 → 3N 22:59 → SUATTDRO 22:59 → 3N 08-21
DX: J45.909 Unspecified asthma, uncomplicated; R74.01 Elevation of levels of liver transaminase levels; K21.9 Gastro-esophageal reflux disease without esophagitis; Z88.8 Allergy status to other drugs, medicaments and biological substances; G47.33 Obstructive sleep apnea (adult) (pediatric); Z87.440 Personal history of urinary (tract) infections; E78.00 Pure hypercholesterolemia, unspecified; D68.51 Activated protein C resistance; E03.9 Hypothyroidism, unspecified; Z88.6 Allergy status to analgesic agent; K57.32 Diverticulitis of large intestine without perforation or abscess without bleeding; E55.9 Vitamin D deficiency, unspecified; Z88.2 Allergy status to sulfonamides; Z86.711 Personal history of pulmonary embolism